=== PATIENT | male | born 1955 | race Caucasian/White ===

== ENCOUNTER 2018-02-03 09:52 | Outpatient (REF) | payer BC, SELFPAY | END 2018-02-03 10:12 | LOC: NCHCN 09:52 | PROVIDERS: PCP Family Medicine; Visit Provider Specialist/Technologist Athletic Trainer | DX: Z00.00 Encounter for general adult medical examination without abnormal findings (principal) | CPT/HCPCS: 84153 ==

== ENCOUNTER 2018-04-07 16:28 | Outpatient (REF) | payer BC, SELFPAY ==
[2018-04-07 20:32] LABS: BUN 22 mg/dL (7-18); Glucose 88 mg/dL (70-100); Sodium 141 mmol/L (136-145)
[2018-04-07 21:49] LABS: Calcium 11.9 mg/dL (8.5-10.1)
[2018-04-07 21:50] LABS: Anion Gap 12.4 mmol/L (3-11); CO2 29.6 mmol/L (21.0-32.0); CREATININE 1.54 mg/dL (0.70-1.30); Chloride 99 mmol/L (98-107); Potassium 3.1 mmol/L (3.5-5.1)
== END 2018-04-07 16:48 ==
LOC: NCHCN 16:28
PROVIDERS: PCP Family Medicine; Visit Provider Specialist/Technologist Athletic Trainer
DX: Z00.00 Encounter for general adult medical examination without abnormal findings (principal); Z13.228 Encounter for screening for other metabolic disorders
CPT/HCPCS: 80048

== ENCOUNTER 2018-04-08 08:45 | Outpatient (CLI) | payer BC, SELFPAY ==
[2018-04-08 11:00] LABS: Albumin 3.9 g/dL (3.4-5.0)
[2018-04-09 11:06] LABS: Parathyroid Hormone,Intact 7 pg/ml (19-88)
== END 2018-04-08 09:05 ==
PROVIDERS: PCP Family Medicine; Visit Provider Specialist/Technologist Athletic Trainer
DX: E83.52 Hypercalcemia (principal)
CPT/HCPCS: 36415; 82040; 83970; 84443

== ENCOUNTER 2018-04-09 00:36 | Outpatient (CLI) | payer BC, SELFPAY ==
--- NOTE | 2018-04-09 12:45 | DI.RAD_ITS ---
SYMPTOM/DIAGNOSIS: COUGH, R05 PA AND LATERAL CHEST: There are no prior comparison exams. The lungs are not well inflated. The heart size is at the upper limits of normal. There is bilateral hilar and mediastinal adenopathy. There are mildly increased interstitial markings bilaterally. No focal infiltrate or effusion is seen. The findings could represent sarcoid. Clinical correlation is recommended. IMPRESSION: Hilar and mediastinal adenopathy as well as increased interstitial markings could represent sarcoid.
== END 2018-04-09 00:56 ==
PROVIDERS: PCP Family Medicine; Visit Provider Specialist/Technologist Athletic Trainer
DX: R59.0 Localized enlarged lymph nodes (principal); R91.8 Other nonspecific abnormal finding of lung field
CPT/HCPCS: 71046

== ENCOUNTER 2018-04-15 01:17 | Outpatient (CLI) | payer BC, SELFPAY ==
[2018-04-15 14:24] LABS: Anion Gap 10.8 mmol/L (3-11); BUN 20 mg/dL (7-18); CO2 26.2 mmol/L (21.0-32.0); Calcium 10.2 mg/dL (8.5-10.1); Chloride 103 mmol/L (98-107); Estimated GFR 55.94 (mL/min/1.73m2); Glucose 98 mg/dL (70-100); Potassium 3.6 mmol/L (3.5-5.1); Sodium 140 mmol/L (136-145)
--- NOTE | 2018-04-15 15:30 | DI.CT_ITS ---
SYMPTOM/DIAGNOSIS: ABNL CXR, R91.8. [place] MEDIASTINAL ADENOPATHY. CHRONIC COUGH CHEST CT: The study was conducted according to the usual protocol with an intravenous injection of 97.1 cc of Omnipaque 350. There are some faint bilateral pulmonary interstitial densities. A region of scarring or atelectasis involving the posterior right upper lobe is identified. There is gross hilar and mediastinal adenopathy. There is no evidence of a pleural effusion. The heart is not enlarged. There is no pericardial effusion. The trachea and bronchi as visualized appear intact. There is no evidence of an aortic aneurysm in this patient. There are rather severe degenerative changes throughout the dorsal and upper lumbar spine with anterior syndesmophyte formation. The findings would be consistent with DISH. SUMMARY: Regions of apparent interstitial fibrosis, gross hilar and mediastinal adenopathy. Given the patient's clinical status and prior chest images the findings are certainly consistent with sarcoid.
[2018-04-15] MEDS: Omnipaque 350 MG/ML 100 ML BTL IJ (15:32)
== END 2018-04-15 01:37 ==
PROVIDERS: PCP Family Medicine; Visit Provider Specialist/Technologist Athletic Trainer
DX: R91.8 Other nonspecific abnormal finding of lung field (principal); R05 Cough; J84.10 Pulmonary fibrosis, unspecified; R59.0 Localized enlarged lymph nodes; E83.52 Hypercalcemia
CPT/HCPCS: 36415; 80048; 71260; J3490

== ENCOUNTER 2021-05-28 13:21 | Outpatient (REF) | payer OTHER, SELFPAY ==
--- NOTE | 2021-05-28 12:45 | SKI_PTH ---
PATIENT: Osmani Charles LOC: [facility] U#:[id number] AGE/SX: 66/M ROOM: RE05/28/[address]: David Mcdowell MD : [id number] BED: DIS: 05/28/2021 SPEC #: [id number] RECD: 05/28/21 18:05 STATUS: GUILLERMO REGabriela #: [id number] ERWIN: 05/28/21 12:[address]: David Mcdowell DEPT: Surgical Specimen RECD BY: Giuliana Kuo ENTERED: 05/28/21 18:05 SP TYPE: MACHELLE MOROCHO DR: Tin Garcia Tissues: 1 - SKIN BIOPSY(SHAVE/PUNCH) Procedures: SKIN LEVEL 4 Comments: [id number]
== END 2021-05-28 13:22 | disposition home or self-care (01) ==
LOC: LBN 13:21
PROVIDERS: PCP Family Medicine; Visit Provider Otolaryngology
DX: D23.39 Other benign neoplasm of skin of other parts of face (principal)
CPT/HCPCS: 88305

== ENCOUNTER 2021-06-07 15:46 | Outpatient (CLI) | payer OTHER, SELFPAY ==
--- NOTE | 2021-06-07 16:26 | DI.RAD_ITS ---
Exam(s) XR LUMBAR SPINE COMPLETE EXAM: XR LUMBAR SPINE COMPLETE CLINICAL HISTORY: LT LEG PAIN, M79.605. TECHNIQUE: 2D digital imaging was performed of the lumbar spine. Five images were obtained. AP, la teral, right oblique, left oblique and L5-S1 spot views were obtained. COMPARISON: No exams were available for comparison FINDINGS: BONES: No fracture or destructive lesion. There are endplate hypertrophic changes throughout the lumb ar spine. Degenerative changes of the facets are seen in the lumbar spine. DISKS: There is narrowing and a vacuum disc at L4-L5. ALIGNMENT: Lumbar spinal alignment is within normal limits. No spondylolysis or spondylolisthesis. SOFT TISSUE: Normal. IMPRESSION: Moderately severe degenerative changes throughout the lumbar spine. DATA REPOSITORY: RADIATION DOSE DELIVERED:
--- NOTE | 2021-06-07 16:26 | DI.RAD_ITS ---
Exam(s) XR HIP PELVIS ADULT BL EXAM: XR HIP PELVIS ADULT BL CLINICAL HISTORY: LT LEG PAIN, M79.605. TECHNIQUE: 2D digital imaging was performed of the pelvis and bilateral hips. Five images were obta ined. AP pelvis and lateral views of both hips were obtained. COMPARISON: No exams were available for comparison FINDINGS: BONES: No acute fracture is present. No bony destructive lesion is seen. JOINTS: No dislocation present. Marked degenerative changes of the hips bilaterally with joint space narrowing subchondral sclerosis and periarticular spurring present. Degenerative changes are also se en in the lower lumbar spine. SOFT TISSUE: Normal. IMPRESSION: Osteoarthritis of the hips bilaterally. DATA REPOSITORY: RADIATION DOSE DELIVERED:
== END 2021-06-07 16:06 ==
PROVIDERS: PCP Family Medicine; Visit Provider Family Medicine
DX: M79.605 Pain in left leg (principal); M47.816 Spondylosis without myelopathy or radiculopathy, lumbar region; M16.0 Bilateral primary osteoarthritis of hip
CPT/HCPCS: 73521; 72110

== ENCOUNTER 2021-06-13 02:48 | Outpatient (CLI) | payer OTHER, SELFPAY ==
[2021-06-13 08:26] LABS: ALT 32 U/L (16-63); AST 19 U/L (15-37); Albumin 4.1 g/dL (3.4-5.0); Alkaline Phosphatase 148 U/L (46-116); Anion Gap 10.3 mmol/L (3-11); BUN 18 mg/dL (7-18); Bilirubin, Total 0.8 mg/dL (0.2-1.0); CO2 28.7 mmol/L (21.0-32.0); CREATININE 1.2 mg/dL (0.70-1.30); Calcium 9.5 mg/dL (8.5-10.1); Calculated LDL 151 mg/dL (<100); Chloride 105 mmol/L (98-107); Cholesterol 215 mg/dL (<200); Glucose 100 mg/dL (74-106); HDL Cholesterol 45 mg/dL (40-60); Potassium 3.7 mmol/L (3.5-5.1); Sodium 144 mmol/L (136-145); Total Protein 7.4 g/dL (6.4-8.2); Triglyceride 99 mg/dL (<150)
[2021-06-13 20:56] LABS: PSA, Screening 0.5 ng/mL (0.0-4.5)
== END 2021-06-13 02:49 | disposition home or self-care (01) ==
LOC: LBO 02:48
PROVIDERS: PCP Family Medicine; Visit Provider Family Medicine
DX: Z12.5 Encounter for screening for malignant neoplasm of prostate (principal); Z13.220 Encounter for screening for lipoid disorders; Z13.228 Encounter for screening for other metabolic disorders
CPT/HCPCS: 36415; 80053; 80061; 84153

== ENCOUNTER → 2021-09-12 03:04 | Outpatient (CLI) | payer OTHER, SELFPAY ==
--- NOTE | 2021-09-12 13:30 | DI.RAD_ITS ---
Exam(s) RF JOINT INJECTION FLUORO GUID EXAM: RF JOINT INJECTION FLUORO GUID CLINICAL HISTORY: L HIP INJ UNDER FLUORO, LT HIP PAIN,M25.552 TECHNIQUE: 2D and realtime digital imaging was performed. CONTRAST MATERIAL: Water soluble contrast was administered. COMPARISON: No exams were available for comparison FINDINGS: Fluoroscopy was provided for Dr. Mcginnis during the performance of a left hip injection. Please re mireille to the procedure report for complete details. RADIATION DOSE DELIVERED: dolly Cruz=0.85 mGy
--- NOTE | 2021-09-12 13:38 | DI.RAD_ITS ---
Exam(s) RF JOINT INJECTION FLUORO GUID EXAM: RF JOINT INJECTION FLUORO GUID CLINICAL HISTORY: R HIP INJ UNDER FLUORO,RT HIP PAIN, M25.551 TECHNIQUE: 2D and realtime digital imaging was performed. CONTRAST MATERIAL: Water soluble contrast was administered. COMPARISON: No exams were available for comparison FINDINGS: Fluoroscopy was provided for Dr. Mcginnis during the performance of a right hip injection. Please r efer to the procedure report for complete details. RADIATION DOSE DELIVERED: dolly Cruz=0.06 mGy
[2021-09-12] MEDS: Omnipaque 300 MG/ML 10 ML BTL IJ ×2 (14:05→15:15)
[2021-09-12] MEDS: methylPREDNISolone ACETATE 80 MG/ML VIAL IM ×2 (14:37→15:15)
--- NOTE | 2021-09-12 19:58 | W.PROCNOTE ---
Date of service: 09/12/21 Time of Service: 14:40 Procedure Note Date of procedure: 09/12/21 Procedure: Bilateral Hip Injection with Fluoroscopic Guidance Surgeon/Proceduralist/Physician: Kofi Mcginnis Procedure Diagnosis: Bilateral Hip Osteoarthritis Procedure Indications: Osmani has had persistent pain of the BILATERAL hip and groin. Noninvasive measures have been tried. To serve as both diagnostic and therapeutic, an injection under fluoroscopy was recommended. I had discussed the risks of the procedure and the patient elected to proceed. Procedure Description: Osmani was greeted in the flouroscopy room. The consent was reviewed with the patient and signed. The patient was then placed in the supine position on the fluoroscopy table. The RIGHT hip was then prepped with Chloraprep. The anterolateral injection starting point was identiifed by bony landmarks and fluoroscopy. The skin and soft tissue in the tract of the injection was anesthetized with 1% Lidocaine. A spinal needle was then inserted deep into the hip joint at the level of the lateral femoral neck under fluoroscopic guidance. A small amount of Omnipaque solution was injected to confirm intraarticular placement. Once confirmed, the hip was injected with 5cc of 0.5% Bupivicaine and 80mg of Depo-Medrol. A bandaid was placed on the injection site. The LEFT hip was then prepped with Chloraprep. The anterolateral injection starting point was identiifed by bony landmarks and fluoroscopy. The skin and soft tissue in the tract of the injection was anesthetized with 1% Lidocaine. A spinal needle was then inserted deep into the hip joint at the level of the lateral femoral neck under fluoroscopic guidance. A small amount of Omnipaque solution was injected to confirm intraarticular placement. Once confirmed, the hip was injected with 5cc of 0.5% Bupivicaine and 80mg of Depo-Medrol. A bandaid was placed on the injection site. The patient tolerated the procedure well.
== END ==
PROVIDERS: PCP Family Medicine; Visit Provider Student in an Organized Health Care Education/Training Program
DX: M25.551 Pain in right hip (principal); M25.552 Pain in left hip
CPT/HCPCS: 20610; 77002; J1040

== ENCOUNTER 2021-11-11 13:44 | Outpatient (CLI) | payer OTHER, SELFPAY ==
--- NOTE | 2021-11-11 08:30 | DI.RAD_ITS ---
Exam(s) XR PELVIS AP EXAM: XR PELVIS AP CLINICAL HISTORY: ALEISHA planning TECHNIQUE: 2D digital imaging was performed. AP supine view with template ball COMPARISON: CR XR HIP PELVIS ADULT BL from 06/07/2021 FINDINGS: Severe bilateral hip joint space narrowing. Periarticular spurring, sclerosis and subchondral cyst f ormation bilaterally. IMPRESSION: Severe degenerative changes of both hips.
== END 2021-11-11 13:45 | disposition home or self-care (01) ==
LOC: DIORS 13:44
PROVIDERS: PCP Family Medicine; Visit Provider Physician Assistant
DX: M16.0 Bilateral primary osteoarthritis of hip
CPT/HCPCS: 72170

== ENCOUNTER 2022-03-13 12:10 | Outpatient (CLI) | payer OTHER, SELFPAY ==
[2022-03-13 11:14] LABS: HCT 43.5 % (40.0-50.0); HGB 14.4 g/dL (13.5-17.5); MCH 29.9 pg (27.0-33.0); MCHC 33.1 % (32.0-36.0); MCV 90 fL (80-95); MPV 11.4 fL (8.0-11.0); Platelet Count 197 10^3/uL (130-400); RBC 4.82 10^6/uL (4.36-5.78); RDW 13.2 % (11.8-14.1); RDW-SD 43.7 fL; WBC 5.86 10^3/uL (4.4-10.8)
[2022-03-13 11:53] LABS: Anion Gap 9.2 mmol/L (3-11); BUN 24 mg/dL (7-18); CO2 28.8 mmol/L (21.0-32.0); CREATININE 1.2 mg/dL (0.70-1.30); Calcium 9.7 mg/dL (8.5-10.1); Chloride 104 mmol/L (98-107); Glucose 105 mg/dL (74-106); Sodium 142 mmol/L (136-145)
== END 2022-03-13 12:11 | disposition home or self-care (01) ==
LOC: LBO 12:11
PROVIDERS: PCP Family Medicine; Visit Provider Student in an Organized Health Care Education/Training Program
DX: M16.11 Unilateral primary osteoarthritis, right hip (principal); M16.12 Unilateral primary osteoarthritis, left hip; Z01.818 Encounter for other preprocedural examination
CPT/HCPCS: 36415; 80048; 85027; 86850; 86900; 86901

== ENCOUNTER 2022-03-18 05:52 | Day surgery (SDC) | payer OTHER, SELFPAY ==
[2022-03-18] VITALS (16 sets, daily range): BP systolic 87–130; BP diastolic 50–87; PULSE 37–53; RESP 10–18; TEMP 36–36.5; O2SAT 94–99; BMI 35.4
[2022-03-18] MEDS: Acetaminophen 500 MG TAB 1000 MG PO ×2 (06:33→16:23)
[2022-03-18] MEDS: Celecoxib 200 MG CAP 400 MG PO (06:33)
[2022-03-18] MEDS: Lactated Ringers 1,000 ML 80 ML IV (06:40)
--- NOTE | 2022-03-18 07:00 | W.ANESPRE ---
General Info Date of Service Date Performed: 03/18/22 Height: 5 ft 6 in Weight: 99.7 kg Body Mass Index (BMI): 35.4 Surgical Procedure: Operation Date: 03/18/22 08:00 Proposed Procedure Side Surgeon p Hip Total Hip Anterior Bilateral ACTIS Bilateral Kofi Mcginnis MD Meds Allergies and Home Medications Allergies Allergy/AdvReac Type Severity Reaction Status Date / Time lactose AdvReac Stomach Verified 03/18/22 06:11 Upset Home Medication Medication Instructions Recorded amlodipine 10 mg tablet 10 mg PO DAILY 05/24/21 garlic 1,000 mg capsule 4,000 mg PO DAILY 05/24/21 ibuprofen 200 mg capsule 600 mg PO Q6H PRN 05/24/21 metoprolol tartrate 50 mg tablet 50 mg PO BID 05/24/21 sildenafil 100 mg tablet (Viagra) 100 mg PO DAILY PRN 05/24/21 multivitamin 1 tab PO DAILY 05/28/21 Current Visit Medications: Current Medications Generic Name Dose Route Start Last Admin Trade Name Robertq PRN Reason Stop Dose Admin Acetaminophen 1,000 mg 03/18/22 06:00 03/18/22 06:33 Acetaminophen 500 Mg Tab PO 03/18/22 16:00 1,000 mg PREOP ELIEZER Administration Celecoxib 400 mg 03/18/22 06:00 03/18/22 06:33 Celecoxib 200 Mg Cap PO 03/18/22 16:00 400 mg PREOP ELIEZER Administration Tranexamic Acid 1,000 mg/ 60 mls @ 360 mls/hr 03/18/22 06:00 Sodium Chloride IV 03/18/22 16:00 PREOP ELIEZER Tranexamic Acid 1,000 mg/ 60 mls @ 360 mls/hr 03/18/22 06:00 Sodium Chloride IV 03/18/22 16:00 DIRECTED ELIEZER Ringer's Solution 1,000 mls @ 80 mls/hr 03/18/22 06:00 IV 04/16/22 23:59 INFUSION ELIEZER Cefazolin Sodium/Dextrose 2 gm in 50 mls @ 100 mls/hr 03/18/22 06:00 Ancef Duplex IVPB 03/18/22 16:00 PREOP ELIEZER IV Miscellaneous Supplies 1 each 03/18/22 06:00 Iv Access IV 04/16/22 23:59 DIRECTED ELIEZER Sodium Chloride 0 ml 03/18/22 06:00 Normal Saline Flush 10 Ml Syr IV 04/16/22 23:59 PRN PRN Sodium Chloride 0 ml 03/18/22 06:00 Normal Saline 10 Ml Vial IJ 04/16/22 23:59 DIRECTED PRN Sterile Water 0 ml 03/18/22 06:00 Water,Injection,Sterile 10 Ml Vial IJ 04/16/22 23:59 DIRECTED PRN PFSH Active Problems Active Problems: Problem Status Onset Code Asymmetrical sensorineural hearing loss H90.5 Exostosis of both external ear canals H61.813 Impacted cerumen, left ear H61.22 External nasal lesion L98.9 Primary localized osteoarthritis of right hip M16.11 Primary osteoarthritis of left hip M16.12 Lumbar spondylosis M47.816 Degenerative disc disease, lumbar M51.36 Medical History Medical History Anxiety Basal cell carcinoma (BCC) Bradycardia Carpal tunnel syndrome Erectile dysfunction Gout Hyperlipidemia Hypertension Lumbar disc disease Obstructive sleep apnea Right retinal detachment Sarcoidosis of lung Tubular adenoma Ulnar neuropathy Surgical History Surgical History (Updated 03/18/22 @ 06:12 by Kelley Simmons) History of back surgery History of mandibular surgery 2010 Hx of colonoscopy Hx of detached retina repair 11/2020 Hx of discectomy 07/2002 Hx of vasectomy Tobacco Smoking/Tobacco Use Status: Never Alcohol Alcohol Intake: current Alcohol intake frequency: a few times a week Alcohol type: beer and wine Substance Use Substance use: Never Substance use type: does not use Details: alcohol: t-1, one beer Vital Signs and Lab Results Vital Signs Most Recent Vital Signs in EMR: Most Recent Vital Signs Temp Pulse Resp BP Pulse Ox 36.5 C 53 L 18 130/82 98 03/18/22 06:20 03/18/22 06:20 03/18/22 06:20 03/18/22 06:20 03/18/22 06:20 Lab Results Blood Type / Crossmatch: Patient ABO/Rh B Positive 03/13/22 Antibody Screen NEGATIVE 03/13/22 Complete Blood Count: White Blood Count 5.86 10^3/uL (4.4-10.8) 03/13/22 11:01 Red Blood Count 4.82 10^6/uL (4.36-5.78) 03/13/22 11:01 Hemoglobin 14.4 g/dL (13.5-17.5) 03/13/22 11:01 Hematocrit 43.5 % (40.0-50.0) 03/13/22 11:01 Platelet Count 197 10^3/uL (130-400) 03/13/22 11:01 Complete Metabolic Panel: Sodium 142 mmol/L (136-145) 03/13/22 11:01 Potassium 4.0 mmol/L (3.5-5.1) 03/13/22 11:01 Chloride 104 mmol/L (98-107) 03/13/22 11:01 Carbon Dioxide 28.8 mmol/L (21.0-32.0) 03/13/22 11:01 BUN 24 mg/dL (7-18) H 03/13/22 11:01 Creatinine 1.2 mg/dL (0.70-1.30) 03/13/22 11:01 Est GFR (CKD-EPI 2020) 66.70 (mL/min/1.73m2) 03/13/22 11:01 Calcium 9.7 mg/dL (8.5-10.1) 03/13/22 11:01 Glucose 105 mg/dL (74-106) 03/13/22 11:01 Liver Function Panel: No Data to Display Coagulation Panel: No Data to Display Cardiac Panel: No Data to Display Arterial Blood Gas: No Data to Display Venous Blood Gas: No Data to Display Pancreas Panel: No Data to Display Thyroid Panel: No Data to Display Infectious Disease: No Data to Display Blood Cultures: No Data to Display Toxicology Panel: No Data to Display Anesthesia Assessment and Plan Anesthesia History Personal History: No History of Anesthesia Complications Family History: No Family History of Anesthesia Complications Exercise Tolerance Exercise Tolerance: Metabolic Equivalents>4 Pertinent Negatives Pertinent Negatives: No Symptoms of GERD, No Major Cardiovascular Symptoms or Complaints, No Major Pulmonary Symptoms or Complaints (Sarcoidosis resolved, SHAWN resolved with surgery ) and No History of CVA/TIA Cardiac & Pulmonary Exam Cardiac Exam: Normal S1/S2 Heart Sounds Pulmonary Exam: Clear Bilateral Breath Sounds Implantable Cardiac Device Does patient have a Pacemaker or an ICD?: No Airway Exam Known Difficult Airway: No Mallampati Class: 1 Mouth Opening: Normal (> 3cm) Thyromental Distance: Greater than 3 cm Neck Range of Motion: Full ROM Neck Circumference: Thick Teeth Condition: Normal Dentition ASA Classification ASA Score: ASA 2 Emergency Case?: No NPO Status NPO Status: NPO Clears >2 hours, Solids >8 hours Anesthesia Plan Resuscitation Status: Full Code Anesthesia Technique: Spinal Anesthesia Airway Planned: Natural Airway Monitors Used: Standard Monitors
--- NOTE | 2022-03-18 07:21 | DSE_ITS ---
Date of service: 03/18/22 Time of Service: 13:56 DS: Diagnosis Discharge Diagnosis (1) Primary localized osteoarthritis of right hip: Status: Acute (2) Primary osteoarthritis of left hip: Status: Acute Discharge Plan Disposition Patient Disposition: HOME Condition: Good Condition: Good Discharge Details Reason For Visit: Bilateral Hip DJD Attending Provider: Kofi Mcginnis Primary Care Provider: Tin Garcia Home Meds and New Rx's Prescriptions: New celecoxib 200 mg capsule 200 mg PO BID PRN (Reason: pain) Qty: 60 1RF aspirin 81 mg tablet,delayed release (DR/EC) 81 mg PO BID Qty: 60 0RF acetaminophen 500 mg tablet 1,000 mg PO Q8H PRN (Reason: pain) Qty: 90 3RF pantoprazole 40 mg tablet,delayed release (DR/EC) 40 mg PO DAILY Qty: 30 0RF dexamethasone 4 mg tablet 4 mg PO DAILY Qty: 2 0RF Rx Instructions: Starting Post-Operative Day #1 (Day after surgery) oxycodone 5 mg tablet 5 mg PO Q4H Qty: 18 0RF Continued garlic 1,000 mg capsule 4,000 mg PO DAILY sildenafil [Viagra] 100 mg tablet 100 mg PO DAILY PRN Rx Instructions: administer 30 minutes to 4 hours before activity amlodipine 10 mg tablet 10 mg PO DAILY metoprolol tartrate 50 mg tablet 50 mg PO BID multivitamin Tablet 1 tab PO DAILY Discontinued ibuprofen 200 mg capsule 600 mg PO Q6H PRN Discharge Instructions Additional Instructions: Total Hip Discharge Instructions Activity: The most important activity is to walk. You should try to take short walks a few times a day. You have no restrictions on movement or positioning, but do not try to force what you do. You will find some stiffness and weakness with hip flexion (lifting your knee). Do not try to strengthen this too early, continue to practice walking and stairs and this will come. - Outpatient physical therapy can be helpful to help return you to a normal gait and improve your flexibility and strength. This can start around 2 weeks. For some patients, it?s not necessary. Usually this is determined at the time of discharge or at the first post-operative visit. - You should wear the CATRINA hose on both legs for 2 weeks. Dressing: Keep the surgical dressing in place for at least one week. After the first week it may be removed and replace with light gauze and tape or nothing. It may get wet after 3 days but avoid soaking the dressing. If it gets wet, just lightly pat dry. It is important to always keep some gauze between skin folds, especially when you are sitting. Spend some time with the wound exposed when you are lying flat as the incision does wrinkle onto itself. Medications: - You should take Tylenol and an anti-inflammatory Celebrex as your primary pain control medications. If the Celebrex is too expensive or not covered, please call the office for another alternative (Advil/Ibuprofen or Naproxen/Aleve). - You have been prescribed a stronger pain medication Oxycodone for breakthrough pain, take as needed as prescribed. - You have also been prescribed a stomach acid reduction agent Pantoprozole to help reduce stomach acid and reflux. - You have also been prescribed Decadron to help with post-operative nausea and pain. You will take this for two days starting tomorrow. - You will be taking Aspirin 81mg twice a day for DVT prevention unless instructed otherwise. - If you have constipation you should take Colace or Miralax (both [id number]). It takes most people 3-4 days to have a bowel movement. Follow-up: 2 weeks If you have any acute concerns or questions, please do not hesitate to contact the office at [phone]. You may contact Dr. Mcginnis with any questions after hours through the hospital at [phone] or on his cell phone at [phone]. Stand Alone Forms: Anesthesia Discharge InstMona, Derrek Yost (U) Referrals: Kofi Mcginnis MD [ [facility] STAFF PHYSICIAN] - Equipment/Supplies: Walker Activity:: Activity as Tolerated Remove Dressings/Wound Care:: Do Not Remove Shower/Bathe:: 72 hours Activity:: Activity as Tolerated Equipment/Supplies:: Walker Diet:: As Tolerated DS: Summary Time Spent with Patient providing and/or coordinating discharge services: Less than 30 minutes Status at Discharge Functional status at discharge: uses cane/walker Overall status at discharge: patient is progressing back to baseline Mental Status: mental status grossly normal Speech and Movement: speech and movement normal Mood: congruent mood Affect: normal affect Exam Psych Mental Status: mental status grossly normal Speech and Movement: speech and movement normal Mood: congruent mood Affect: normal affect DS: Data Vitals/I&O Vitals and I&O: Vital Signs Temperature 36.5 C 03/18/22 06:20 Pulse 53 L 03/18/22 06:20 Pulse Rhythm Regular 03/18/22 06:20 Respiratory Rate 18 03/18/22 06:20 Respiratory Depth Normal 03/18/22 06:20 Blood Pressure 130/82 03/18/22 06:20 Pulse Oximetry 98 03/18/22 06:20 Oxygen Delivery Method Room Air 03/18/22 06:20 Oxygen Flow Rate 0 03/18/22 06:20 Pain Level 0 03/18/22 06:20 Intake & Output 03/17/22 03/17/22 03/18/22 11:59 23:59 11:59 Weight 99.7 kg PFSH All Active Problems Asymmetrical sensorineural hearing loss (Acute) Exostosis of both external ear canals (Acute) Impacted cerumen, left ear (Acute) External nasal lesion (Acute) Primary localized osteoarthritis of right hip (Acute) Primary osteoarthritis of left hip (Acute) Lumbar spondylosis (Acute) Degenerative disc disease, lumbar (Acute) Medical History Anxiety Basal cell carcinoma (BCC) Bradycardia Carpal tunnel syndrome Erectile dysfunction Gout Hyperlipidemia Hypertension Lumbar disc disease Obstructive sleep apnea Right retinal detachment Sarcoidosis of lung Tubular adenoma Ulnar neuropathy Surgical History History of back surgery History of mandibular surgery 2010 Hx of colonoscopy Hx of detached retina repair 11/2020 Hx of discectomy 07/2002 Hx of vasectomy Family History Mother Cancer Social History Smoking/Tobacco Use Status: Never Smoking risk assessment performed?: Yes Alcohol Intake: current Alcohol Intake frequency: a few times a week Alcohol type: beer and wine Drug use: Never Substance use type: does not use Details: alcohol: t-1, one beer Pets and animals: Yes Pets and animals: dog(s) Do you feel safe at home: Yes Do you feel safe in your relationship?: Yes Additional Social history: unable to assess privately
[2022-03-18] MEDS: ceFAZolin 2 GM/50 ML BAG IVPB (07:42)
--- NOTE | 2022-03-18 08:38 | DI.RAD_ITS ---
Exam(s) XR HIP RT IN OR EXAM: XR HIP RT IN OR CLINICAL HISTORY: right total hip TECHNIQUE: 2D and realtime digital imaging was performed. CONTRAST MATERIAL: Refer to procedure report. COMPARISON: CR XR PELVIS AP from 11/11/2021 FINDINGS: Fluoroscopy was provided for Dr. Mcginnis during the performance of a right total hip arthroplasty. Please refer to the procedure report for complete details. Ka,r=7.9 mGy IMPRESSION: RADIATION DOSE DELIVERED:
--- NOTE | 2022-03-18 09:55 | DI.RAD_ITS ---
Exam(s) XR HIP LT IN OR EXAM: XR HIP LT IN OR CLINICAL HISTORY: left total hip TECHNIQUE: 2D and realtime digital imaging was performed. CONTRAST MATERIAL: Refer to procedure report. COMPARISON: CR XR PELVIS AP from 11/11/2021 FINDINGS: Fluoroscopy was provided for Dr. Mcginnis during the performance of a left total hip arthroplasty. Please refer to the procedure report for complete details. Ka,r=5.43 mGy IMPRESSION: RADIATION DOSE DELIVERED:
--- NOTE | 2022-03-18 11:44 | ROE_ITS ---
Date of service: 03/18/22 Time of Service: 10:05 Operative Note Operative Note DATE OF PROCEDURE: 03/18/22 PRE-OP DIAGNOSIS: Bilateral Hip Osteoarthritis POST-OP DIAGNOSIS: same PROCEDURE: Bilateral Anterior Total Hip Arthroplasty with Intraoperative Navigation SURGEON: Kofi Mcginnis BELT MAKER: Michelle Wilburn ANESTHESIA TYPE: Spinal Refer to Anesthesia Record ESTIMATED BLOOD LOSS: 400 PATHOLOGY: none sent COMPLICATIONS: None Patient was transported to: PACU Patient's condition: stable Implants: RIGHT: 1. Depuy Inchelium Acetabular Component, 54mm 2. Depuy Acetabular Liner, [id number] 3. Depuy Actis Standard Femoral Stem, Size 7 4. Depuy Altrx Ceramic Femoral Head, Size 36+5mm LEFT: 1. Depuy Inchelium Acetabular Component, 54mm 2. Depuy Acetabular Liner, [id number] 3. Depuy Actis Standard Femoral Stem, Size 6 4. Depuy Altrx Ceramic Femoral Head, Size 36+5mm Indications: I have seen Kobe in clinic for symptoms of hip arthritis, confirmed with radiographic findings. He has exhausted nonoperative methods and was having significant limitations in daily function and desired better function and less pain. I discussed the technical details of a hip replacement. I explained the risks of the procedure to include, but not limited to, bleeding, infection, pain, stiffness, fracture, damage to nerves and vessels, damage to muscles and tendons, loosening, instability, leg length inequality, need for repeat procedure, blood clot and cardiopulmonary demise. Despite these risks, Kobe elected to proceed. Findings: There was significant signs of arthritis throughout both hips. Osteophytes were present around the femoral neck with a large floor osteophyte. Procedure Description: Kobe was greeted in the preoperative holding area where the correct side was identified and marked. The consent was reviewed with the patient and signed. The history and physical was updated. All questions were answered. He was taken back to the operating room. A spinal anesthestic was then administered. The patient was placed into the supine position on the HANA table. Both feet were wrapped with [employer]brill cotton wrap along with Coban. RIGHT Side The feet were placed in specialized boots for the HANA table, well seated within the boot and secured. SCDs were applied. The patient was then slid down onto a peroneal post. A preoperative AP hip was obtained to serve as a reference for determining leg lengths. Prophylactic antibiotics in the form of Cefazolin were administered. 1g of Tranxemic Acid was given intravenously within 30 minutes of incision. The right leg was then prepped with Chloraprep and draped in a standard fashion. A second prep with Chloraprep was performed prior to placement of a shower-curtain type drape with Iodine impregnated skin protection. A timeout to confirm correct identity, side and site, procedure, allergies, anesthesia, and medical concerns was performed. An obliquely oriented incision was made starting lateral to the ASIS and running distal over the Tensor Fascia Nevaeh (TFL) muscle belly toward the fibular head, approximately 10cm. The skin and soft tissue was dissected sharply, through Delano?s fascia, and to the fascia of the TFL. With the fascia and superior border of the IT band identified, the fascia was incised with a new knife just above any perforators from the IT band. The TFL muscle belly was bluntly dissected away from the fascia and moved laterally. The fat between TFL and rectus was identified to ensure the dissection was not within the TFL. Blunt dissection created space between abductors and the capsule and retractor was placed over the lateral femoral neck. The fibers of the rectus femoris tendon were identified and these were freed from the anterior capsule. A second cobra retractor was placed around the medial femoral neck. The TFL was further retracted laterally to show the deep fascia. Careful dissection through this layer identified three main crossing vessels of the lateral femoral circumflex. These were cauterized in multiple locations and then cut without any noticeable bleeding. The TFL was further released bluntly from the deep fascia to expose anterior hip capsule and fat The Doug orthopaedic retractor was then placed beneath the TFL and against sartorius and medial soft tissues to protect and retract the soft tissues. A T-capsulotomy was then performed starting at the superior lateral acetabulum and moving distally to the intertrochanteric ridge. These capsular flaps were tagged with a No. 1 Ethibond and elevated from within. The capsular flaps were released to the shoulder of the lateral neck and to the lesser trochanter to give excellent visualization of the proximal femur. A neck osteotomy was performed using an oscillating saw based on preoperative templates. This cut started in the shoulder and of the lateral neck and exited medially. The saw was at all times directed medially to avoid injury to the greater trochanter. Gentle traction was applied to the leg and the osteotomy opened. The femoral head was removed with a corkscrew, making sure to protect the TFL on its exit. This was measured on the back table to determing the starting reamer size. Portions of the rectus obscuring visualization were minimally elevated off the superior acetabulum. An anterior retractor was placed over the anterior wall between capsule and labrum and attached to the Gripper retraction system. A posterior retractor was placed similarly. This provided excellent visualization. The contents of the cotyloid fossa were removed with electrocautery and the labrum was removed with a knife. There was a notable floor osteophyte. There was significant chondromalacia of the s uperior acetabulum. Acetabular reaming began with a 50mm reamer. This first reaming was directed anterior to posterior and medial to get down to the true floor. This was inspected and reamed until the true floor was reached. The anterior retractor was then released and entry and exit was provided by traction on the capsular flaps. I then reamed sequentially up to a 54mm reamer where good fit was obtained. The larger reamers were oriented based on anatomical reference of the anterior and lateral sims to ensure proper abduction and anteversion. Positioning and size was confirmed with the fluoroscopy. A 54mm Depuy Inchelium acetabular component was selected. The acetabulum was reamed around the periphery with the selected acetabular size to prevent a rim fit. The deep tissues were irrigated. The acetabular component was then impacted in a position of about 40-45 degrees of abduction and 15-20 degrees of anteversion, using the patient?s anatomy as the ultimate landmark. Fluoroscopy was used to confirm this. There was excellent developer architect of the acetabular component and the inserting handle was removed. The acetabular liner, Depuy [id number] polyethylene liner, was inserted and lined up with the tines of the acetabular component. There was no soft tissue interposition. The liner was then impacted into position and confirmed to be well-seated. A portion of the matt-articular cocktail was then injected around the acetabulum into the capsule and periosteum. This cocktail consisted of 123mg of Ropivacaine, 0.25mg of Epinephrine, 0.04mg of Clonidine, and 15mg of Ketorolac, diluted to 50cc. Traction was released from the femur. The leg was rotated to 120 degrees. Any remaining medial capsule was released until the lesser trochanter was easily palpable. A Guthrie retractor was placed medially. The lateral capsule was further released into the shoulder to allow access to the greater trochanter. A Guthrie retractor was placed over the greater trochanter which allowed the trochanter to flip in front of the capsule for excellent exposure. The leg was brought down into maximal extension and 20 degrees of adduction while ensuring there was no impingement on the acetabulum. Any remnant capsule within the trochanter was released. Piriformis and obturator externis were identified and protected. There was excellent access to the proximal femur. The lateral neck remnant was removed with a rongeur. A blunt canal probe was used to identify the canal and trajectory for later broaching. A box osteotome initiated the broach course. A small curved rasp an d a curved curette were used to work laterally. Broaching then began with a size 0 Actis broach. This was inserted manually around the trochanter and into the canal before mallet blows. The broach was seated to a few millimeters below the cut level based on the neck cut and the preoperative template. Sequential broaching was continued with the [employer] pneumatic broaching device until a tight fit was obtained with good rotational control of the femur. A trial standard neck was inserted along with a +5 trial head. The leg was brought out of extension and adduction and then reduced with t raction and internal rotation. The leg was stable anteriorly in a position of 30 degrees of extension and 90 degrees of external rotation. Fluoroscopy was used to ensure there was no fracture and the stem was seated well. Leg lengths were checked with an AP pelvis and pelvic reference points. [employer] navigation system was used to confirm appropriate positioning and leg length and offset. Once content with the desired offset and leg lengths, the leg was brought back into extension, external rotation and adduction. The periosteum and surrounding tissue was injected with remaining portion of the matt-articular cocktail. The proximal femur was irrigated as well as the deep tissues. The Depuy Actis standard stem, size 7, was then manually inserted into the proximal femur making sure to control rotation. It was then malleted into position with light blows, giving breaks to allow bone expansion and decrease risk of fracture. The selected Depuy Altrx Ceramic Head, size 36+5mm, was then placed onto the clean and dry trunnion and secured with impaction onto the tapered fit. The leg was brought back out of extension and adduction and reduced with traction and internal rotation. Stability was confirmed with no shuck at 90 degrees of external rotation and 30 degrees of extension. No impingement through range of motion arc. Final x-ray images were obtained with fluoroscopy to confirm adequate positioning and no intraoperative fracture. The deep tissues were thoroughly irrigated with Irrisept chlorhexadine solution. The second dose of TXA 1g was administered intravenously.The capsule was then reapproximated with the previously placed Ethibond sutures. The TFL fascia was finally closed with a No. 2 Stratafix, barbed suture. Deep tissues were then reapproximated with 0 Vicryl and a running 2-0 Vicryl. The skin was closed with a running 4-0 Monocryl in a subcuticular fashion. This was reinforced with skin glue. A Mepilex silver dressing was applied. LEFT Side Keeping the back table sterile, the drapes were removed, light handles changed, and fluoroscopy switched rooms sides. Once again, a AP hip was obtained to serve as a reference for determining leg lengths. The left leg was then prepped with Chloraprep and draped in a standard fashion. A second prep with Chloraprep was performed prior to placement of a shower-curtain type drape with Iodine impregnated skin protection. A timeout was once again performed to ensure that there were no issues to proceed. An obliquely oriented incision was made starting lateral to the ASIS and running distal over the Tensor Fascia Nevaeh (TFL) muscle belly toward the fibular head, approximately 10cm. The skin and soft tissue was dissected sharply, through Delano?s fascia, and to the fascia of the TFL. With the fascia and superior border of the IT band identified, the fascia was incised with a new knife just above any perforators from the IT band. The TFL muscle belly was bluntly dissected away from the fascia and moved laterally. The fat between TFL and rectus was identified to ensure the dissection was not within the TFL. Blunt dissection created space between abductors and the capsule and retractor was placed over the lateral femoral neck. The fibers of the rectus femoris tendon were identified and these were freed from the anterior capsule. A second cobra retractor was placed around the medial femoral neck. The TFL was further retracted laterally to show the deep fascia. Careful dissection through this layer identified three main crossing vessels of the lateral femoral circumflex. These were cauterized in multiple locations and then cut without any noticeable bleeding. The TFL was further released bluntly from the deep fascia to expose anterior hip capsule and fat The Doug orthopaedic retractor was then placed beneath the TFL and against sartorius and medial soft tissues to protect and retract the soft tissues. A T-capsulotomy was then performed starting at the superior lateral acetabulum and moving distally to the intertrochanteric ridge. These capsular flaps were tagged with a No. 1 Ethibond and elevated from within. The capsular flaps were released to the shoulder of the lateral neck and to the lesser trochanter to give excellent visualization of the proximal femur. A neck osteotomy was performed using an oscillating saw based on preoperative templates. This cut started in the shoulder and of the lateral neck and exited medially. The saw was at all times directed medially to avoid injury to the greater trochanter. Gentle traction was applied to the leg and the osteotomy opened. The femoral head was removed with a corkscrew, making sure to protect the TFL on its exit. This was measured on the back table to determing the starting reamer size. Portions of the rectus obscuring visualization were minimally elevated off the superior acetabulum. An anterior retractor was placed over the anterior wall between capsule and labrum and attached to the Gripper retraction system. A posterior retractor was placed similarly. This provided excellent visualization. The contents of the cotyloid fossa were remov ed with electrocautery and the labrum was removed with a knife. There was a notable floor osteophyte. There was significant chondromalacia of the superior acetabulum. Acetabular reaming began with a 50mm reamer. This first reaming was directed anterior to posterior and medial to get down to the true floor. This was inspected and reamed until the true floor was reached. The anterior retractor was then released and entry and exit was provided by traction on the capsular flaps. I then reamed sequentially up to a 54mm reamer where good fit was obtained. The larger reamers were oriented based on anatomical reference of the anterior and lateral sims to ensure proper abduction and anteversion. Positioning and size was confirmed with the fluoroscopy. A 54mm Depuy Inchelium acetabular component was selected. The acetabulum was reamed around the periphery with the selected acetabular size to prevent a rim fit. The deep tissues were irrigated. The acetabular component was then impacted in a position of about 40-45 degrees of abduction and 15-20 degrees of anteversion, using the patient?s anatomy as the ultimate landmark. Fluoroscopy was used to confirm this. There was excelle nt developer architect of the acetabular component and the inserting handle was removed. The acetabular liner, Depuy [id number] polyethylene liner, was inserted and lined up with the tines of the acetabular component. There was no soft tissue interposition. The liner was then impacted into position and confirmed to be well-seated. A portion of the amtt-articular cocktail was then injected around the acetabulum into the capsule and periosteum. This cocktail consisted of 123mg of Ropivacaine, 0.25mg of Epinephrine, 0.04mg of Clonidine, and 15mg of Ketorolac, diluted to 50cc. Traction was released from the femur. The leg was rotated to 120 degrees. Any remaining medial capsule was released until the lesser trochanter was easily palpable. A Guthrie retractor was placed medially. The lateral capsule was further released into the shoulder to allow access to the greater trochanter. A Guthrie retractor was placed over the greater trochanter which allowed the trochanter to flip in front of the capsule for excellent exposure. The leg was brought down into maximal extension and 20 degrees of adduction while ensuring there was no impingement on the acetabulum. Any remnant capsule within the troc hanter was released. Piriformis and obturator externis were identified and protected. There was excellent access to the proximal femur. The lateral neck remnant was removed with a rongeur. A blunt canal probe was used to identify the canal and trajectory for later broaching. A box osteotome initiated the broach course. A small curved rasp and a curved curette were used to work laterally. Broaching then began with a size 0 Actis broach. This was inserted manually around the trochanter and into the canal before mallet blows. The broach was seated to a few millimeters below the cut level based on the neck cut and the preoperative template. Sequential broaching was continued with the [employer] pneumatic broaching device until a tight fit was obtained with good rotational control of the femur. A trial standard neck was inserted along with a +5 trial head. The leg was brought out of extension and adduction and then reduced with traction and internal rotation. The leg was stable anteriorly in a position of 30 degrees of extension and 90 degrees of external rotation. Fluoroscopy was used to ensure there was no fracture and the stem was seated well. Leg lengths were checked with an AP pelvis and pelvic reference points. [employer] navigation system was used to confirm appropriate positioning and leg length and offset. There was correct denominational of the offset but over lengthening of the leg, so the broach was advanced 5mm. Once content with the desired offset and leg lengths, the leg was brought back into extension, external rotation and adduction. The periosteum and surrounding tissue was injected with remaining portion of the matt-articular cocktail. The proximal femur was irrigated as well as the deep tissues. The Depuy Actis standard stem, size 6, was then manually inserted into the proximal femur making sure to control rotation. It was then malleted into position with light blows, giving breaks to allow bone expansion and decrease risk of fracture. The selected Depuy Altrx Ceramic Head, size 36+5mm, was then placed onto the clean and dry trunnion and secured with impaction onto the tapered fit. The leg was brought back out of extension and adduction and reduced with traction and internal rotation. Stability was confirmed with no shuck at 90 degrees of external rotation and 30 degrees of extension. No impingement through range of motion arc. Final x-ray images were obtained with fluoroscopy to confirm adequate positioning and no intraoperative fracture. The deep tissues were thoroughly irrigated with Irrisept chlorhexadine solution. The capsule was then reapproximated with the previously placed Ethibond sutures. The TFL fascia was finally closed with a No. 2 Stratafix, barbed suture. Deep tissues were then reapproximated with 0 Vicryl and a running 2-0 Vicryl. The skin was closed with a running 4-0 Monocryl in a subcuticular fashion. This was reinforced with skin glue. A Mepilex silver dressing was applied. At the end of the case, all counts were correct. Kobe was transferred to the hospital bed without difficulty and suffering no apparent complication. Kobe has a good prognosis. Physical therapy will start today and without restrictions, weight-bearing as tolerated. Aspirin 81mg BID will be used for DVT prophylaxis.
--- NOTE | 2022-03-18 15:11 | PT.INIE ---
Date of service: 03/18/22 PT Notes Visit Reasons: Bilateral Hip DJD Physical Therapy Day Surgery Initial Evaluation Date: 03/18/2022 Referring Doctor: Kofi Mcginnis MD PT Orders: PT CONSULT: S/p Ortho surgery Precautions: WBAT on BLE with AD. Patient Profile/Admitting Diagnosis: Kobe is a 67-year-old male with degenerative joint disease of bilateral hips and is status post bilateral total anterior hip arthroplasties on postoperative day 0. PMHX: Medical History? Anxiety Basal cell carcinoma (BCC) Bradycardia Carpal tunnel syndrome Erectile dysfunction Gout Hyperlipidemia Hypertension Lumbar disc disease Obstructive sleep apnea Right retinal detachment Sarcoidosis of lung Tubular adenoma Ulnar neuropathy Surgical History? History of back surgery History of mandibular surgery 2010 Hx of detached retina repair 11/2020 Hx of discectomy 07/2002 Hx of vasectomy Social History/Home Situation: Kobe lives with in a private home with 3 steps to enter with no rails. 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 Independent with all aspects of ADLs prior to surgery. Equipment Owned/DME: None Subjective: Reported lightheadedness when he stood up from edge of bed for the first time and needed to be placed back down due to blood pressure decrease. Objective: General Observation: Appeared drowsy initially. Report of lightheadedness worsened with first sit<>stand. Mental Status: Drowsy but oriented as to person, place, and date Pain: Denies ROM: Right Lower Extremity: Hip flexion WFL. Hip abduction WFL. Knee flexion WFL. Ankle dorsiflexion WFL. Ankle plantarflexion WFL. Left Lower Extremity: Hip flexion WFL. Hip abduction WFL. Knee flexion WFL. Ankle dorsiflexion WFL. Ankle plantarflexion WFL. Strength: Right Lower Extremity: Hip flexors 4/5. Hip abductors 4/5. Knee flexors 5/5. Knee extensors 4/5. Ankle dorsiflexors 5/5. Ankle plantarflexors 5/5. Left Lower Extremity: Hip flexors 4/5. Hip abductors 4/5. Knee flexors 5/5. Knee extensors 4/5. Ankle dorsiflexors 5/5. Ankle plantarflexors 5/5. Sensation: Numbness in buttock area resolved per Nurse Mónica prior to PT arrival Bed Mobility/Transfers: Supine to sit contact-guard assist Sit to stand contact-guard assist Stand to sit contact-guard assist Bed to chair contact-guard assist Gait: Patient tolerated short distance ambulation of 15 feet + 75 feet + 75 feet using front wheeled walker with contact-guard assist of PT and wheelchair followed by nurse slot floor supervisor Bhavana. Reported of being lightheaded again after the first 75 feet requiring seated rest. No loss of balance. Nor shortness of breath. Stairs: Tolerated up and down 6 x 4 inch steps while holding onto bilateral rails with step to gait pattern requiring contact-guard assist of 2 for safety with out increase in report of lightheadedness. Did a second trial utilizing a single-point cane on one side and a rail on the other side no report of increased pain or increased lightheadedness. Balance: Static Sitting: Normal Dynamic Sitting: Normal Static Standing: Fair Dynamic Standing: Fair Special Tests: Mobility Limitations Standardized Measure [facility] 6 clicks Basic Mobility Inpatient Short Form: Raw Score: 18 CMS Score: 47% deficit Informed Consent/Education: Patient instructed in purpose of PT consult. Packet containing ALEISHA exercise protocol has been given to patient. Education and training on initial set of exercises that can be done at home have been completed with patient and patient's . Assessment: Kobe requires the use of a front-wheeled walker for all mobility ADL performance in order to maximize independence and reduce fall risk. Mobility performance today limited by BP reduction resulting to lightheadedness due to postoperative status needing more than 1 visit for this patient to ensure safety of mobility performance. Patient will have the support of Maribell as he recovers at home. Patient presents with clinical signs and symptoms consistent with current/admitting diagnoses that have resulted to mobility limitations, gait instability, generalized weakness, and impairment of motor control as demonstrated by the following impairment level findings: 1. Decreased strength to be hip major muscle groups 2. Impaired standing balance 3. Lightheadedness Impairments are contributing to the following functional limitations: 1. Inability to safely ambulate without assistive device 2. Increase completion time for mobility ADL performance 3. Increased fall risk Patient is assessed as a 10039 moderate complexity based on the following: History: 67-year-old female with impairment level findings, functional limitations, and past medical history as indicated above Examination: Demonstrable impairment in strength, balance, and mobility level with underlying impairments and functional limitations as documented above Presentation: Evolving Decision Makin moderate complexity Goals: N/A. PT evaluation and 1-2 treatment sessions only for functional mobility training using recommended AD and for HEP instruction. Plan of Care/Treatment Plan: N/A. PT evaluation and 1-2 treatment session only for functional mobility training using recommended AD and for HEP instruction. DISCHARGE RECOMMENDATIONS: [] Home with no services [] [] Home with services [specify] [X] Home with outpatient PT. Home when medically cleared by orthopedic surgeon. Will benefit from outpatient PT services in order to facilitate return to independent community ambulation and achieve optimal functional mobility outcomes. [] SNF for continued rehabilitation [] [] [facility] [] [] SNF versus LTC based on ability to participate and progress [] TREATMENT CODE/TIME: 75021 x 22 minutes, 9753 0 x 40 minutes starting at 13:20 and 15:11 PM. Thank you for the opportunity to participate in the care of this patient. Ingrid Mcdonald PT, DPT, CLT [facility] [place], [place]
--- NOTE | 2022-03-18 15:28 | W.ANESPOSTOP ---
Postoperative Evaluation Date, Time and Location Date Performed: 03/18/22 Time Performed: 15:28 Patient Location: Day Surgery Unit Vital Signs Most Recent Imported Vital Signs: Most Recent Vital Signs Temp Pulse Resp BP Pulse Ox 36.1 C L 41 L 16 101/70 96 03/18/22 13:35 03/18/22 13:35 03/18/22 13:35 03/18/22 13:35 03/18/22 13:35 Pain Score Most Recent Pain Score: Most Recent Pain Score Pain Level 0 03/18/22 13:35 Assessment Mental Status: Awake (Alert & Oriented to Patient Baseline) Airway and Respiratory Function: Patent airway with normal (patient baseline) respiratory exam Cardiovascular Function: Hemodynamically Stable Hydration Status: Adequately Hydrated Nausea & Vomiting: No Nausea or Vomiting Pain: Pain is tolerable per patient Peripheral Nerve Block: Patient did not receive a nerve block Postoperative Comments:: complained of dizziness while up and ambulating. feels good now, just wants to go home. b/p and dizzyness to be reassessed by [facility] prior to discharge.
== END 2022-03-18 16:37 | disposition home or self-care (01) ==
PROVIDERS: PCP Family Medicine; Visit Provider Student in an Organized Health Care Education/Training Program
PROC: 0SR90JZ Replacement of Right Hip Joint with Synthetic Substitute, Open Approach (ICD-10-PCS; CPT 27130; principal; 2022-03-18 07:30)
DX: M16.0 Bilateral primary osteoarthritis of hip (principal); I10 Essential (primary) hypertension; E78.5 Hyperlipidemia, unspecified; G47.33 Obstructive sleep apnea (adult) (pediatric)
CPT/HCPCS: 27130; 20985; 97162; 97530; 73501; J0690; J2250

== ENCOUNTER 2022-03-31 15:15 | Outpatient (CLI) | payer OTHER, SELFPAY ==
--- NOTE | 2022-03-31 14:46 | DI.RAD_ITS ---
Exam(s) XR HIP PELVIS ADULT BL EXAM: XR HIP PELVIS ADULT BL INDICATION: f/u bilateral ALEISHA. COMPARISON: CR XR PELVIS AP from 11/11/2021 XA XR HIP LT IN OR from 03/18/2022 XA XR HIP RT IN OR from 03/18/2022 TECHNIQUE: 2D digital imaging was performed. Three views. FINDINGS: Stable appearance of bilateral hip prostheses. No abnormal surrounding bony lucencies. DATA REPOSITORY: RADIATION DOSE DELIVERED:
== END 2022-03-31 15:16 | disposition home or self-care (01) ==
LOC: DIORS 15:15
PROVIDERS: PCP Family Medicine; Referring Provider Family Medicine; Visit Provider Student in an Organized Health Care Education/Training Program
DX: M16.0 Bilateral primary osteoarthritis of hip (principal); Z96.643 Presence of artificial hip joint, bilateral
CPT/HCPCS: 73521

== ENCOUNTER 2022-06-13 09:35 | Outpatient (CLI) | payer OTHER, SELFPAY ==
--- NOTE | 2022-06-13 08:00 | DI.RAD_ITS ---
Exam(s) XR HIP LT AP LAT ONLY EXAM: XR HIP LT AP LAT ONLY CLINICAL HISTORY: left hip pain. TECHNIQUE: 2D digital imaging was performed. Two views. COMPARISON: CR XR HIP PELVIS ADULT BL from 03/31/2022 FINDINGS: There has been no change in the alignment of the bilateral hip prostheses. No abnormal bony lucencie s are seen. DATA REPOSITORY: RADIATION DOSE DELIVERED:
== END 2022-06-13 09:36 | disposition home or self-care (01) ==
LOC: DIORS 09:35
PROVIDERS: PCP Family Medicine; Referring Provider Family Medicine; Visit Provider Physician Assistant
DX: Z96.643 Presence of artificial hip joint, bilateral (principal)
CPT/HCPCS: 73502

== ENCOUNTER 2022-10-10 07:22 | Day surgery (SDC) | payer OTHER, SELFPAY ==
[2022-10-10 07:48] VITALS: BP 144/89; PULSE 79; RESP 16; TEMP 36.2; O2SAT 97
[2022-10-10] MEDS: Tropicam./Phenyleph. (1/2.5%) 5 ML BTL OD ×3 (07:52→08:09)
--- NOTE | 2022-10-10 08:18 | W.ANESPRE ---
General Info Date of Service Date Performed: 10/10/22 Height: 5 ft 6 in Weight: 99.7 kg Body Mass Index (BMI): 35.4 Surgical Procedure: Operation Date: 10/10/22 09:40 Proposed Procedure Side Surgeon p Cataract Extraction with IOL Implant Right Lennox Powers MD Meds Allergies and Home Medications Allergies Allergy/AdvReac Type Severity Reaction Status Date / Time lactose AdvReac Stomach Verified 10/10/22 07:45 Upset Home Medication Medication Instructions Recorded amlodipine 10 mg tablet 10 mg PO DAILY 05/24/21 garlic 1,000 mg capsule 4,000 mg PO DAILY 05/24/21 metoprolol tartrate 50 mg tablet 50 mg PO BID 05/24/21 sildenafil 100 mg tablet (Viagra) 100 mg PO DAILY PRN 05/24/21 multivitamin 1 tab PO DAILY 05/28/21 acetaminophen 500 mg tablet 1,000 mg PO Q8H PRN pain #90 tabs 03/18/22 Current Visit Medications: Current Medications Generic Name Dose Route Start Last Admin Trade Name Freq PRN Reason Stop Dose Admin Acetaminophen 1,000 mg 10/10/22 06:00 Acetaminophen 500 Mg Tab PO 11/09/22 05:59 Q4H PRN PRN Balanced Salt Solution 500 ml 10/10/22 06:00 Balanced Salt Soln.-Plus 500 Ml Bag OP 11/09/22 05:59 DIRECTED [facility] Miscellaneous Medication 0 ml 10/10/22 06:00 Prednisolone 1%, Moxifloxacin 0.5%, Nepafenac 0.1% 5ml Btl OD 11/09/22 05:59 DIRECTED ELIEZER Miscellaneous Medication 0 ml 10/10/22 06:00 10/10/22 08:09 Tropicam./Phenyleph. 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 H61.813 Impacted cerumen, left ear H61.22 External nasal lesion L98.9 Primary localized osteoarthritis of right hip M16.11 Primary osteoarthritis of left hip M16.12 Lumbar spondylosis M47.816 Degenerative disc disease, lumbar M51.36 Medical History Medical History Anxiety Basal cell carcinoma (BCC) Bradycardia Carpal tunnel syndrome Erectile dysfunction Gout Hyperlipidemia Hypertension Lumbar disc disease Obstructive sleep apnea Right retinal detachment Sarcoidosis of lung Tubular adenoma Ulnar neuropathy Surgical History Surgical History History of back surgery History of mandibular surgery 2010 Hx of colonoscopy Hx of detached retina repair 11/2020 Hx of discectomy 07/2002 Hx of vasectomy Tobacco Smoking/Tobacco Use Status: Never Alcohol Alcohol Intake: current Alcohol intake frequency: a few times a week Alcohol type: beer and wine Substance Use Substance use: Never Substance use type: does not use Vital Signs and Lab Results Vital Signs Most Recent Vital Signs in EMR: Most Recent Vital Signs Temp Pulse Resp BP Pulse Ox 36.2 C L 79 16 144/89 H 97 10/10/22 07:48 10/10/22 07:48 10/10/22 07:48 10/10/22 07:48 10/10/22 07:48 Lab Results Blood Type / Crossmatch: No Data to Display Complete Blood Count: No Data to Display Complete Metabolic Panel: No Data to Display Liver Function Panel: No Data to Display Coagulation Panel: No Data to Display Cardiac Panel: No Data to Display Arterial Blood Gas: No Data to Display Venous Blood Gas: No Data to Display Pancreas Panel: No Data to Display Thyroid Panel: No Data to Display Infectious Disease: No Data to Display Blood Cultures: No Data to Display Toxicology Panel: No Data to Display Anesthesia Assessment and Plan Anesthesia History Personal History: No History of Anesthesia Complications Family History: No Family History of Anesthesia Complications Exercise Tolerance Exercise Tolerance: Metabolic Equivalents>4 Pertinent Negatives Pertinent Negatives: No Symptoms of GERD, No Major Cardiovascular Symptoms or Complaints and No Major Pulmonary Symptoms or Complaints Cardiac & Pulmonary Exam Cardiac Exam: Normal S1/S2 Heart Sounds Pulmonary Exam: Clear Bilateral Breath Sounds Implantable Cardiac Device Does patient have a Pacemaker or an ICD?: No Airway Exam Known Difficult Airway: No Mallampati Class: 1 Mouth Opening: Normal (> 3cm) Thyromental Distance: Greater than 3 cm Neck Range of Motion: Full ROM Neck Circumference: Thick Teeth Condition: Normal Dentition ASA Classification ASA Score: ASA 2 Emergency Case?: No NPO Status NPO Status: NPO Clears >2 hours, Solids >8 hours Anesthesia Plan Resuscitation Status: Full Code Anesthesia Technique: MAC Anesthesia Airway Planned: Natural Airway Monitors Used: Standard Monitors
[2022-10-10 08:23] VITALS: BMI 35.4
[2022-10-10] MEDS: Tetracaine 0.5% 4 ML BTL OD (09:14)
[2022-10-10] MEDS: Povidone-Iodine Ophth 30 ML BTL (09:15)
[2022-10-10] MEDS: Duovisc Viscoelastic System EACH 1 EACH (09:22)
[2022-10-10] MEDS: Balanced Salt Soln.-PLUS 500 ML BAG OP (09:22)
[2022-10-10] MEDS: Phenylephrine/Lidocaine (15/10) MG/ML 1 ML VIAL (09:23)
[2022-10-10] MEDS: Lidocaine 1% Pres-Free 5 ML VIAL (09:23)
[2022-10-10] MEDS: Trypan Blue 0.06% 0.5 ML SYR (09:28)
[2022-10-10 09:58] VITALS: BP 152/84; PULSE 53; RESP 16; TEMP 36.3; O2SAT 97
--- NOTE | 2022-10-10 09:59 | W.PM.DSUDISC ---
Date of service: 10/10/22 Time of Service: 09:59 Discharge Plan Disposition Patient Disposition: Home Discharge Details Attending Provider: Lennox Powers Primary Care Provider: Tin Garcia Home Meds and New Rx's Prescriptions: No Action garlic 1,000 mg capsule 4,000 mg PO DAILY sildenafil [Viagra] 100 mg tablet 100 mg PO DAILY PRN Rx Instructions: administer 30 minutes to 4 hours before activity amlodipine 10 mg tablet 10 mg PO DAILY metoprolol tartrate 50 mg tablet 50 mg PO BID multivitamin Tablet 1 tab PO DAILY acetaminophen 500 mg tablet 1,000 mg PO Q8H PRN (Reason: pain) Qty: 90 3RF Discharge Instructions Stand Alone Forms: Post-op Topical Cataract, Derrek Yost ([facility]) Discharge Orders Discharge Orders: Discharge Order (Routine); Ordered 10/10/22 Ordered By: Lennox Powers DS: Diagnosis Discharge Diagnosis (1) Posterior subcapsular age-related cataract, right eye: Status: Resolved (2) Nuclear age-related cataract, right eye: Status: Resolved (3) History of vitrectomy: Status: Chronic
--- NOTE | 2022-10-10 10:00 | ROE_ITS ---
Date of service: 10/10/22 Time of Service: 10:00 Operative Note Operative Note DATE OF PROCEDURE: 10/10/22 PRE-OP DIAGNOSIS: Dense nuclear/posterior subcapsular cataract, right eye History of pars plana vitrectomy/endolaser/C3F8 gas for retinal detachment repair, right eye POST-OP DIAGNOSIS: same PROCEDURE: Cataract extraction using phacoemulsification with intraocular lens implant, rig ht eye Insertion of capsular tension ring, right eye SURGEON: Lennox Powers ANESTHESIA TYPE: Local By Surgeon and MAC Refer to Anesthesia Record PATHOLOGY: none sent COMPLICATIONS: None Patient was transported to: same day Patient's condition: stable Implants: Prabhu and Prabhu Sensar AR40e MOrcher Type 15A capsular tension ring Indications: Progressive decreased vision due to cataract, right eye Findings: Severe diffuse zonular laxity, right eye Procedure Description: CATARACT SURGERY OPERATIVE REPORT PREOPERATIVE DIAGNOSIS: 1. Dense nuclear/posterior subcapsular cataract, right eye 2. History of pars plana vitrectomy/endolaser/C3F8 gas for retinal detachment, right eye POSTOPERATIVE DIAGNOSIS: Same OPERATION: 1. Cataract extraction using phacoemulsification with posterior chamber intraocular lens implant, right eye. 2. Insertion of Morcher Type 15A capsular tension ring IOL: IOL Belly Dancer/Model: Prabhu & Prabhu Sensar AR40e IOL Power: + 14.5 diopters IOL Serial Number: [id number] Optic Diameter: 6.0 mm Haptic/Overall Diameter: 13.0 mm PHACO INFO: Stevie [employer] Vision System with OZil and Active Fluidics Cumulative Dispersed Energy (CDE): 21.25 seconds SURGEON: Lennox Powers MD, JUDE ANESTHESIA: Monitored A [facility] (MAC), with local sub-tenon's anesthetic infiltration COMPLICATIONS: None SPECIMENS: None INDICATIONS FOR PROCEDURE: The patient is a 67-year-old gentleman who previously suffered a retinal detachment in the right eye and underwent subsequent pars plana vitrectomy with endolaser and gas. He has developed a dense nuclear/posterior subcapsular cataract in the right eye. Cataract surgery is undertaken in attempt to improve and maximize his vision, although postoperative visual acuity will be limited by the presence of pre-existing retinal pathology. See office notes for detailed information. PROCEDURE: The correct surgical eye was identified and marked as the right eye and the pupil was dilated in the preoperative area using mydriatics and cycloplegics. The dilated pupil size was 7.0 mm. The patient elected to proceed without oral sedation. The patient was brought to the operating room where cardiopulmonary monitoring was instituted and surgical time-out was performed, confirming the correct operative eye and IOL power. Topical anesthesia was administered and ophthalmic povidone-iodine 5% was instilled into the conjunctival fornices. The matt-ocular area was prepped with Betadine 10% solution and draped in the usual sterile fashion for intraocular surgery, including an aperture drape. A Tegaderm transparent film dressing was cut in half and used to cover the lashes and lid margins. Care was taken to sequester the lashes and lid margins under the Tegaderm dressing. A lid speculum was placed between the lids of the operative eye and the Stevie [employer] Revalia operating microscope was maneuvered into position. Alex scissors were then used to make a conjunctival buttonhole approximately 6mm posterior to the limbus in the inferonasal quadrant. Blunt dissection was carried out to expose bare sclera, and a blunt-tipped sub-tenon?s anesthesia cannula was introduced and passed posteriorly along the globe where non- preserved plain lidocaine was injected into posterior sub-Tenon?s space. A sideport knife was used to make a paracentesis port. VisionBlue was injected into the anterior chamber and allowed to sit for 30 seconds, after which it was irrigated out with balanced salt solution. Intraocular phenylephrine/lidocaine was injected into the anterior chamber.. The anterior chamber was filled with viscoelastic. A keratome knife was used to construct a 2-plane near-clear corneal tunnel extending 2.0mm into clear cornea. A flap was raised on the anterior capsule and capsulorhexis forceps were used to complete a continuous curvilinear capsulorhexis of 5.5 mm. The anterior capsule was noted to be very thin, with a deep anterior chamber and loo se zonules. Balanced salt solution was then used to perform cortical cleaving hydrodissection and nuclear hydrodelineation until the lens could be freely rotated within the capsular bag. The lens nucleus was then disassembled and removed within the capsular bag and iris plane using phacoemulsification. Residual cortical material was removed using the irrigation/aspiration handpiece. There was a dense adherent sheet of posterior subcapsular plaque. Cohesive viscoelastic was used to dissect the posterior subcapsular plaque from the posterior capsule. Extensive cortical cleanup was performed. There was a significant amount of adherent posterior subcapsular plaque in the equatorial region which could not be safely removed despite disco dissection and polishing. The posterior capsule was carefully polished to remove as much residual lens epithelial cells as safely possible. A dense central posterior subcapsular plaque remained, which appeared to be mostly on the posterior face of the posterior capsule. . The capsular bag was then inflated and the anterior chamber deepened with viscoelastic. A Morcher Type 15A capsular tension ring was then and inserted into the capsular bag without difficulty. The lens implant described above was inserted into the capsular bag using the Prabhu and Prabhu [place] injector. A Kuglen hook was used to dial the IOL into position. Residual viscoelastic was then removed first from posterior to the IOL, then from the anterior chamber using the I/A handpiece. The lens implant was noted to center nicely within the capsular bag. The incisions were stromally hydrated, and the anterior chamber was reformed using BSS. Then 0.5cc of moxifloxacin 1.0mg/ml were injected into the capsular bag and anterior chamber. The incisions were checked with a Weck spear and found to be secure. Several drops of ophthalmic povidone-iodine 5% were then applied to the eye followed by two drops of Imprimis combination prednisolone/moxifloxacin/nepafenac solution. The drapes were removed and a clear plastic protective eye shield was placed over the eye. The patient was then returned to Same Day Surgery in stable condition.
--- NOTE | 2022-10-10 10:34 | W.ANESPOSTOP ---
Postoperative Evaluation Date, Time and Location Date Performed: 10/10/22 Time Performed: 10:00 Patient Location: Day Surgery Unit Vital Signs Most Recent Imported Vital Signs: Most Recent Vital Signs Temp Pulse Resp BP Pulse Ox 36.3 C L 53 L 16 152/84 H 97 10/10/22 09:58 10/10/22 09:58 10/10/22 09:58 10/10/22 09:58 10/10/22 09:58 Pain Score Most Recent Pain Score: Most Recent Pain Score Pain Level 0 10/10/22 09:58 Assessment Mental Status: Awake (Alert & Oriented to Patient Baseline) Airway and Respiratory Function: Patent airway with normal (patient baseline) respiratory exam Cardiovascular Function: Hemodynamically Stable Hydration Status: Adequately Hydrated Nausea & Vomiting: No Nausea or Vomiting Pain: Pt. Denies Any Pain Peripheral Nerve Block: Patient did not receive a nerve block
== END 2022-10-10 10:31 | disposition home or self-care (01) ==
PROVIDERS: PCP Family Medicine; Visit Provider Ophthalmology
PROC: (CPT 66984; principal; 2022-10-10 09:30)
DX: H25.041 Posterior subcapsular polar age-related cataract, right eye (principal); H25.11 Age-related nuclear cataract, right eye; Z98.890 Other specified postprocedural states
CPT/HCPCS: 66984; V2632

== ENCOUNTER 2023-03-23 14:55 | Outpatient (CLI) | payer OTHER, SELFPAY ==
--- NOTE | 2023-03-23 08:00 | DI.RAD_ITS ---
Exam(s) XR HIP PELVIS ADULT BL EXAM: XR HIP PELVIS ADULT BL CLINICAL HISTORY: 1 year follow-up status post bilateral THAs. TECHNIQUE: 2D digital imaging was performed. COMPARISON: CR XR HIP LT AP LAT ONLY from 06/13/2022 FINDINGS: 3 views There are no pelvic nor hip fractures. Bilateral hip prostheses again noted and both remain in satis factory position alignment with no evidence of fracture or loosening on either side. No evidence of osteomyelitis. IMPRESSION: Stable satisfactory appearance. No acute findings DATA REPOSITORY: RADIATION DOSE DELIVERED:
== END 2023-03-23 14:56 | disposition home or self-care (01) ==
LOC: DIORS 14:55
PROVIDERS: PCP Family Medicine; Visit Provider Student in an Organized Health Care Education/Training Program
DX: Z96.643 Presence of artificial hip joint, bilateral (principal); Z47.1 Aftercare following joint replacement surgery
CPT/HCPCS: 73521

== ENCOUNTER 2024-03-04 09:49 | Day surgery (SDC) | payer OTHER, SELFPAY ==
--- NOTE | 2024-03-03 12:55 | W.PM.DSUDISC ---
Date of service: 03/04/24 Time of Service: 13:01 Discharge Plan Disposition Patient Disposition: Home Condition: Good Discharge Details Reason For Visit: screening colonoscopy Attending Provider: Stanley Garcia Primary Care Provider: Jackie Marin Home Meds and New Rx's Prescriptions: Continued garlic 1,000 mg capsule 4,000 mg PO DAILY sildenafil [Viagra] 100 mg tablet 100 mg PO DAILY PRN Rx Instructions: administer 30 minutes to 4 hours before activity amlodipine 10 mg tablet 10 mg PO DAILY metoprolol tartrate 50 mg tablet 50 mg PO BID multivitamin Tablet 1 tab PO DAILY furosemide 20 mg tablet 20 mg PO DAILY Discontinued bisacodyl [Dulcolax (bisacodyl)] 5 mg tablet,delayed release (DR/EC) 5 mg PO ONCE Qty: 4 0RF Rx Instructions: Take per colonoscopy instructions provided by ordering providers office polyethylene glycol 3350 17 gram/dose powder 17 g PO ONCE Qty: 238 0RF Rx Instructions: Take per colonoscopy instructions provided by ordering providers office Discharge Instructions Additional Instructions: Kobe, I am sorry to tell you that we were not able to complete your colonoscopy today, because there is quite a bit of retained solid stool that makes safe and adequate visualization impossible. Again, I appreciate your patience through the day can I am so sorry that we were not able to see everything as we needed. I will have the office reach out to you with instructions for another attempt at prepping, and to reschedule another colonoscopy at your convenience. 1. If tolerated, consume a soft, low fiber diet for 1-2 days. [address] not drive, drink alcohol, operate machinery, make critical decisions, or do activities that require coordination or balance for 24 hours. 3. Because air was put into your colon during the procedure, expelling air from your rectum (passing gas or farting) is normal. 4. You may not have a bowel movement for 1-3 days because of the colonoscopy prep. This is normal. 5. Go directly to the emergency room if you notice any of the following: Develop chills (warm to touch), or if you have a thermometer and your temperature is above 101 Difficulty breathing or difficultly swallowing Persistent vomiting Severe abdominal pain, other than gas cramps Severe chest pain Black, tarry stools Any bleeding ? exceeding one tablespoon 6. Call your physician if the site where your intravenous was started becomes red, swollen, painful, and warm to touch. 7. Your physician has reviewed your pre-procedure medications. Please continue to take those medications as previously ordered. You will be given specific information/education regarding any changes to your medications before leaving. Activity:: Activity as Tolerated Diet:: As Tolerated Discharge Orders Discharge Orders: Discharge Order (Routine); Ordered 03/03/24 Ordered By: Stanley Garcia DS: Diagnosis Discharge Diagnosis (1) Encounter for screening colonoscopy: Status: Acute Asessment and Plan: Incomplete colonoscopy today because of inadequate prep; rescheduled extended prep
--- NOTE | 2024-03-03 12:56 | COLE_ITS ---
Date of service: 03/04/24 Time of Service: 13:07 Colonoscopy Report Date of procedure: 03/04/24 Pre-op diagnosis general: screening colonsocopy Post-op diagnosis procedure note: other (Incomplete colonoscopy secondary to inadequate) Procedure: colonoscopy Surgeon: Stanley Garcia Anesthesia Type: General:No Airway Estimated blood loss (mL): 0 Pathology: none sent Complications: None Disposition: same day Indications: Kobe is 69 years old. He needs his next screening colonsocopy Prep: Miralax/Dulcolax Procedure Start Time: 12:43 Procedure End Time: 12:56 Findings: Incomplete colonoscopy secondary to inadequate prep Procedure Description: After the induction of anesthesia, and with the patient in left lateral decubitus position, I began by performing an external anorectal exam.? Perineum and skin were normal, as was the anal verge.? There was no evidence of external hemorrhoids.? Next, I performed a digital rectal exam.? I did not appreciate any abnormal findings.? Next, I advanced a colonoscope into the rectal vault.? I performed retroflexion.? This appeared normal.? Using insufflation, I then advanced the colonoscope beyond the rectal folds and into the sigmoid colon before advancing towards the cecum.? At the rectosigmoid junction we encountered a significant amount of semisolid, solid, and liquid stool. Although I was able to navigate around the safely, and eventually all the way over to the cecum, it was nearly impossible to see the mucosa. I then began slowly withdrawing the colonoscope. Quite a bit of time was spent in the cecum just trying to get that clear for visualization. Unfortunately, there is too much solid and semisolid stool to clear through the scope. In fact, the scope was clogged. Therefore, it was gently retracted along the length of the colon and removed from the rectum. Maxwell Bowel Prep Maxwell Bowel Prep Right Colon: 0 Left Colon: 0 Transverse Colon: 0 Total Score: 0
[2024-03-04 10:25] VITALS: BP 131/77; PULSE 49; RESP 20; TEMP 36.3; O2SAT 97
[2024-03-04] MEDS: Normal Saline Flush 10 ML SYR IV (10:53)
--- NOTE | 2024-03-04 12:29 | W.ANESPRE ---
General Info Date of Service Date Performed: 03/04/24 Height: 5 ft 6 in Weight: 97.6 kg Body Mass Index (BMI): 34.7 Surgical Procedure: Operation Date: 03/04/24 11:35 Proposed Procedure Side Surgeon p Antonia Garcia MD Meds Allergies and Home Medications Allergies Allergy/AdvReac Type Severity Reaction Status Date / Time lactose AdvReac Stomach Verified 03/04/24 10:16 Upset Home Medication ?Medication ?Instructions ?Recorded amlodipine 10 mg tablet 10 mg PO DAILY 05/24/21 garlic 1,000 mg capsule 4,000 mg PO DAILY 05/24/21 metoprolol tartrate 50 mg tablet 50 mg PO BID 05/24/21 sildenafil 100 mg tablet (Viagra) 100 mg PO DAILY PRN 05/24/21 multivitamin 1 tab PO DAILY 05/28/21 furosemide 20 mg tablet 20 mg PO DAILY 12/24/23 Current Visit Medications: Current Medications Generic Name Dose Route Start Last Admin Trade Name Freq PRN Reason Stop Dose Admin IV Miscellaneous Supplies 1 each 03/04/24 06:00 Iv Access IV 04/02/24 23:59 DIRECTED ELIEZER Ondansetron HCl 4 mg 03/03/24 12:57 Ondansetron 4 Mg/2 Ml Vial IVP 04/02/24 12:56 Q4H PRN PRN Nausea / Vomiting Sodium Chloride 0 ml 03/04/24 06:00 03/04/24 10:53 Normal Saline Flush 10 Ml Syr IV 04/02/24 23:59 10 ml PRN PRN Administration Sodium Chloride 0 ml 03/04/24 06:00 Normal Saline 10 Ml Vial IJ 04/02/24 23:59 DIRECTED PRN Sterile Water 0 ml 03/04/24 06:00 Water,Injection,Sterile 10 Ml Vial IJ 04/02/24 23:59 DIRECTED PRN PFSH Active Problems Active Problems: Problem Status Onset Code Encounter for screening colonoscopy Acute Z12.11 Tinnitus, left Acute H93.12 Obstructive sleep apnea Chronic G47.33 Other specified disorders of external ear, unspecified ear Acute H61.899 Posterior subcapsular age-related cataract, right eye Resolved H25.041 Nuclear age-related cataract, right eye Resolved H25.11 History of vitrectomy Chronic Z98.890 History of bilateral hip replacements Acute 03/18/22 Z96.643 Asymmetrical sensorineural hearing loss Acute H90.5 Exostosis of both external ear canals Acute H61.813 Impacted cerumen, left ear Acute H61.22 External nasal lesion Acute L98.9 Primary localized osteoarthritis of right hip Acute M16.11 Primary osteoarthritis of left hip Acute M16.12 Lumbar spondylosis Acute M47.816 Degenerative disc disease, lumbar Acute M51.36 Medical History Medical History Nocturia Morbid obesity Lesion of ulnar nerve Hx of skin cancer, basal cell Arthritis of spine Arthritis, hip Diplopia Sarcoidosis of lung Ulnar neuropathy Right retinal detachment Hyperlipidemia Hypertension Anxiety Gout Erectile dysfunction Carpal tunnel syndrome Lumbar disc disease Tubular adenoma Bradycardia Basal cell carcinoma (BCC) Surgical History Surgical History S/P transposition of nerve right ulnar nerve 07/07/2017 Hx of colonoscopy Hx of detached retina repair 11/2020 History of back surgery Hx of discectomy 07/2002 History of mandibular surgery 2010 Hx of vasectomy Tobacco Smoking/Tobacco Use Status: Never Alcohol Alcohol Intake: current Alcohol intake frequency: a few times a week Alcohol type: beer and wine Substance Use Substance use: Never Substance use type: does not use Vital Signs and Lab Results Vital Signs Most Recent Vital Signs in EMR: Most Recent Vital Signs Temp Pulse Resp BP Pulse Ox 36.3 C L 49 L 20 131/77 97 03/04/24 10:25 03/04/24 10:25 03/04/24 10:25 03/04/24 10:25 03/04/24 10:25 Lab Results Blood Type / Crossmatch: No Data to Display Complete Blood Count: No Data to Display Complete Metabolic Panel: No Data to Display Liver Function Panel: No Data to Display Coagulation Panel: No Data to Display Cardiac Panel: No Data to Display Arterial Blood Gas: No Data to Display Venous Blood Gas: No Data to Display Pancreas Panel: No Data to Display Thyroid Panel: No Data to Display Infectious Disease: No Data to Display Blood Cultures: No Data to Display Toxicology Panel: No Data to Display Anesthesia Assessment and Plan Anesthesia History Personal History: No History of Anesthesia Complications Family History: No Family History of Anesthesia Complications Exercise Tolerance Exercise Tolerance: Metabolic Equivalents>4 Pertinent Negatives Pertinent Negatives: No Symptoms of GERD Cardiac & Pulmonary Exam Cardiac Exam: Normal S1/S2 Heart Sounds Pulmonary Exam: Clear Bilateral Breath Sounds Implantable Cardiac Device Does patient have a Pacemaker or an ICD?: No Airway Exam Known Difficult Airway: No Mallampati Class: 1 Mouth Opening: Normal (> 3cm) Thyromental Distance: Greater than 3 cm Neck Range of Motion: Full ROM Neck Circumference: Thick Teeth Condition: Normal Dentition ASA Classification ASA Score: ASA 2 Emergency Case?: No NPO Status NPO Status: NPO Clears >2 hours, Solids >8 hours Anesthesia Plan Resuscitation Status: Full Code Anesthesia Technique: General Anesthesia Airway Planned: Natural Airway Monitors Used: Standard Monitors
[2024-03-04 12:32] VITALS: BMI 34.7
[2024-03-04 13:03] VITALS: BP 94/60; PULSE 50; RESP 18; TEMP 36.8; O2SAT 95
[2024-03-04 13:12] VITALS: BP 98/63; PULSE 50; RESP 18; O2SAT 93
--- NOTE | 2024-03-04 13:24 | W.ANESPOSTOP ---
Postoperative Evaluation Date, Time and Location Date Performed: 03/04/24 Time Performed: 13:24 Patient Location: Day Surgery Unit Vital Signs Most Recent Imported Vital Signs: Most Recent Vital Signs Temp Pulse Resp BP Pulse Ox 36.8 C 50 L 18 98/63 L 93 03/04/24 13:03 03/04/24 13:12 03/04/24 13:12 03/04/24 13:12 03/04/24 13:12 Pain Score Most Recent Pain Score: Most Recent Pain Score Pain Level 0 03/04/24 13:03 Assessment Mental Status: Awake (Alert & Oriented to Patient Baseline) Airway and Respiratory Function: Patent airway with normal (patient baseline) respiratory exam Cardiovascular Function: Hemodynamically Stable Hydration Status: Adequately Hydrated Nausea & Vomiting: No Nausea or Vomiting Pain: Pt. Denies Any Pain Peripheral Nerve Block: Patient did not receive a nerve block
[2024-03-04 13:26] VITALS: BP 115/64; PULSE 52; RESP 18; TEMP 36.7; O2SAT 95
== END 2024-03-04 13:38 | disposition home or self-care (01) ==
LOC: SUR 09:49
PROVIDERS: PCP Nurse Practitioner Family; Visit Provider Surgery
PROC: 0DJD8ZZ Inspection of Lower Intestinal Tract, Via Natural or Artificial Opening Endoscopic (ICD-10-PCS; CPT 45378; principal; 2024-03-04 11:30)
DX: Z12.11 Encounter for screening for malignant neoplasm of colon (principal)
CPT/HCPCS: 45378; J2704

== ENCOUNTER 2024-04-01 08:58 | Day surgery (SDC) | payer OTHER, SELFPAY ==
--- NOTE | 2024-03-31 20:27 | HPE_ITS ---
Assessment and Plan Assessment and plan (1) Encounter for screening colonoscopy: Status: Acute Assessment and plan: Repeat colonoscopy today after extended prep History of Present Illness History of Present Illness Chief Complaint: screening colonoscopy Narrative: 69 y/o male with history of SHAWN, anxiety, HTN, HLD and sarcoidosis of the lung presents for colonoscopy screening pre-op. He describes that a number of years ago, he previously had a Colonoscopy, however he is unable to recall when, where or what the results were. He denies a family history of colon cancer. He denies any changes in bowel habits including bloody or black tarry stools, abdominal pain, diarrhea or constipation. He denies constitutional symptoms. He denies chest pain, palpitations, dyspnea or dyspnea with exertion. He denies prior history or family history of adverse reactions or complications with anesthesia. The patient denies any history of stroke, NV, seizures, bleeding or clotting disorders. He metal implanted in his jaw and bilateral hips. Attempted screening colonscoopy on 03/04 but incomplete because of inadequate p rep; since then, there have been no significant interval changes to the history or physical exam. [facility] All Active Problems Encounter for screening colonoscopy (Acute) Tinnitus, left (Acute) Obstructive sleep apnea (Chronic) Other specified disorders of external ear, unspecified ear (Acute) History of vitrectomy (Chronic) History of bilateral hip replacements (Acute 03/18/22) 03/18/22 Anterior Approach Asymmetrical sensorineural hearing loss (Acute) Exostosis of both external ear canals (Acute) Impacted cerumen, left ear (Acute) External nasal lesion (Acute) Primary localized osteoarthritis of right hip (Acute) s/p bilateral ALEISHA 03/18/22 Primary osteoarthritis of left hip (Acute) s/p bilateral ALEISHA 03/18/22 Lumbar spondylosis (Acute) Degenerative disc disease, lumbar (Acute) Medical History Nocturia Morbid obesity Lesion of ulnar nerve Hx of skin cancer, basal cell Arthritis of spine Arthritis, hip Diplopia Sarcoidosis of lung Ulnar neuropathy Right retinal detachment Hyperlipidemia Hypertension Anxiety Gout Erectile dysfunction Carpal tunnel syndrome Lumbar disc disease Tubular adenoma Bradycardia Basal cell carcinoma (BCC) Surgical History S/P transposition of nerve right ulnar nerve 07/07/2017 Hx of colonoscopy (~02/2024) Hx of detached retina repair 11/2020 History of back surgery Hx of discectomy 07/2002 History of mandibular surgery 2010 Hx of vasectomy Family History Mother , unknown age Cancer Social History Smoking/Tobacco Use Status: Never Smoking risk assessment performed?: Yes Alcohol Intake: current Alcohol Intake frequency: a few times a week Alcohol type: beer and wine Drug use: Never Substance use type: does not use Housing: house 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 Pets and animals: Yes Pets and animals: dog(s) Do you feel safe at home: Yes Do you feel safe in your relationship?: Yes Meds Allergies and Home Medications Allergies Allergy/AdvReac Type Severity Reaction Status Date / Time lactose AdvReac Stomach Verified 04/01/24 09:08 Upset Home Medications ?Medication ?Instructions ?Recorded ?Confirmed ?Type amlodipine 10 mg tablet 10 mg PO DAILY 05/24/21 04/01/24 History garlic 1,000 mg capsule 4,000 mg PO DAILY 05/24/21 03/31/24 History metoprolol tartrate 50 mg tablet 50 mg PO BID 05/24/21 04/01/24 History sildenafil 100 mg tablet (Viagra) 100 mg PO DAILY PRN 05/24/21 04/01/24 History multivitamin 1 tab PO DAILY 05/28/21 04/01/24 History furosemide 20 mg tablet 20 mg PO DAILY 12/24/23 04/01/24 History Exam Const General: cooperative, healthy appearing and not in acute distress Neck Neck: normal visual inspection, no lymphadenopathy and supple Resp Effort & Inspection: normal respiratory effort Auscultation: clear to auscultation bilaterally Cardio Jugular venous pressure: no JVD Rate: regular rate Rhythm: regular rhythm Heart Sounds: S1 normal and S2 normal GI Inspection: normal to inspection Palpation: soft, no guarding, no hernias and nontender Percussion: normal to percussion Auscultation: normal bowel sounds Neuro General: patient alert, patient awake and patient oriented x3 Psych Appearance: grossly normal
--- NOTE | 2024-03-31 20:29 | W.PM.DSUDISC ---
Date of service: 04/01/24 Discharge Plan Disposition Patient Disposition: Home Condition: Good Discharge Details Reason For Visit: screening colonoscopy Attending Provider: Stanley Garcia Primary Care Provider: Jackie Marin Home Meds and New Rx's Prescriptions: Continued garlic 1,000 mg capsule 4,000 mg PO DAILY sildenafil [Viagra] 100 mg tablet 100 mg PO DAILY PRN Rx Instructions: administer 30 minutes to 4 hours before activity amlodipine 10 mg tablet 10 mg PO DAILY metoprolol tartrate 50 mg tablet 50 mg PO BID multivitamin Tablet 1 tab PO DAILY furosemide 20 mg tablet 20 mg PO DAILY Discontinued bisacodyl 5 mg tablet,delayed release (DR/EC) 5 mg PO ONCE Qty: 8 0RF Rx Instructions: Per Colonoscopy bowel prep instructions polyethylene glycol 3350 17 gram/dose powder 238 g PO ONCE Qty: 238 0RF Rx Instructions: For Colonoscopy bowel prep, as directed by office Discharge Instructions Instructions: Colon polyps Additional Instructions: Kobe, it was great seeing you today. Your prep today was outstanding. And am glad you did it because we did find a polyp, which I removed today with no issues. It was quite small, and I certainly overlooked it before when the prep was not sufficient. I removed this polyp today, and I will send it off for testing. Polyps, different varieties, we use that information to guide the timing of your next colonoscopy. Hopefully make a quick recovery and have a great weekend. The results from the polyp report will take about a week or 2, but as you know, I will let you know as soon as I get that information. If you have any questions or need anything in the meantime, please do not hesitate to call. 1. If tolerated, consume a soft, low fiber diet for 1-2 days. [address] not drive, drink alcohol, operate machinery, make critical decisions, or do activities that require coordination or balance for 24 hours. 3. Because air was put into your colon during the procedure, expelling air from your rectum (passing gas or farting) is normal. 4. You may not have a bowel movement for 1-3 days because of the colonoscopy prep. This is normal. 5. Go directly to the emergency room if you notice any of the following: Develop chills (warm to touch), or if you have a thermometer and your temperature is above 101 Difficulty breathing or difficultly swallowing Persistent vomiting Severe abdominal pain, other than gas cramps Severe chest pain Black, tarry stools Any bleeding ? exceeding one tablespoon 6. Call your physician if the site where your intravenous was started becomes red, swollen, painful, and warm to touch. 7. Your physician has reviewed your pre-procedure medications. Please continue to take those medications as previously ordered. You will be given specific information/education regarding any changes to your medications before leaving. Activity:: Activity as Tolerated Diet:: As Tolerated Discharge Orders Discharge Orders: Discharge Order (Routine); Ordered 03/31/24 Ordered By: Stanley Garcia DS: Diagnosis Discharge Diagnosis (1) Encounter for screening colonoscopy: Status: Acute Asessment and Plan: Follow-up on polypectomy results
--- NOTE | 2024-03-31 20:30 | W.COLOREPORT ---
Date of service: 04/01/24 Time of Service: 11:10 Colonoscopy Report Date of procedure: 04/01/24 Pre-op diagnosis general: screening colonoscopy Post-op diagnosis procedure note: other (Colon polyp) Procedure: Colonoscopy with polypectomy Surgeon: Stanley Garcia Anesthesia Type: General:No Airway Estimated blood loss (mL): 5 Pathology: other (0.25 cm polyp at 65 cm) Complications: None Disposition: same day Indications: Kobe is a 69-year-old male who needs a screening colonoscopy. We attempted this about 2 weeks ago, but the prep was insufficient. He is back for repeat attempt Prep: Miralax/Dulcolax (Extended Dulcolax prep) Procedure Start Time: 10:44 Procedure End Time: 11:01 Retraction Time: 12 Findings: 0.25 cm slightly pedunculated polyp at 65 cm from the anus Procedure Description: After the induction of anesthesia, and with the patient in left lateral decubitus position, I began by performing an external anorectal exam.? Similar to the previous attempted colonoscopy, the external exam and digital rectal exam are all normal. Next, I advanced a colonoscope into the rectal vault.? I performed retroflexion.? This looked normal.? Using insufflation, I then advanced the colonoscope beyond the rectal folds and into the sigmoid colon before advancing towards the cecum.? The quality of the prep was outstanding.? The scope was noted to be in the cecum by identification of the ileocecal valve and appendiceal orifice.? I then began withdrawing the colonoscope using repeated irrigation as necessary for full evaluation of the colonic mucosa. Around 65 cm from the anal verge I identified a 0.25 cm polyp. ?It appeared slightly pedunculated in character. ?I was able to remove this with a cold forcep polypectomy. ?I examined the site, and there was minimal bleeding. ?Once this was completed, I continued to withdraw the scope and examine the remainder of the colonic mucosa.?Once the scope was withdrawn to the level of the rectum, great care was taken to examine portions of the rectal folds.? Finally, the scope was withdrawn and the patient was brought to the same-day surgery recovery unit as the anesthetic wore off. ?The findings and instructions were shared with the patient prior to discharge. [place] Bowel Prep [place] Bowel Prep Right Colon: 3 Left Colon: 3 Transverse Colon: 3 Total Score: 9
[2024-04-01 09:10] VITALS: BP 122/73; PULSE 54; RESP 20; TEMP 36.7; O2SAT 97
[2024-04-01] MEDS: Normal Saline Flush 10 ML SYR IV (09:32)
--- NOTE | 2024-04-01 10:04 | W.ANESPRE ---
General Info Date of Service Date Performed: 04/01/24 Height: 5 ft 6 in Weight: 97.1 kg Body Mass Index (BMI): 34.5 Surgical Procedure: Operation Date: 04/01/24 09:50 Proposed Procedure Side Surgeon p Colonoscopy Stanley Garcia MD Meds Allergies and Home Medications Allergies Allergy/AdvReac Type Severity Reaction Status Date / Time lactose AdvReac Stomach Verified 04/01/24 09:08 Upset Home Medication ?Medication ?Instructions ?Recorded amlodipine 10 mg tablet 10 mg PO DAILY 05/24/21 garlic 1,000 mg capsule 4,000 mg PO DAILY 05/24/21 metoprolol tartrate 50 mg tablet 50 mg PO BID 05/24/21 sildenafil 100 mg tablet (Viagra) 100 mg PO DAILY PRN 05/24/21 multivitamin 1 tab PO DAILY 05/28/21 furosemide 20 mg tablet 20 mg PO DAILY 12/24/23 Current Visit Medications: Current Medications Generic Name Dose Route Start Last Admin Trade Name Freq PRN Reason Stop Dose Admin Ringer's Solution 1,000 mls @ 80 mls/hr 04/01/24 06:00 IV 04/01/24 23:59 INFUSION [facility] IV Miscellaneous Supplies 1 each 04/01/24 06:00 Iv Access IV 04/01/24 23:59 DIRECTED ELIEZER Ondansetron HCl 4 mg 03/31/24 20:30 Ondansetron 4 Mg/2 Ml Vial IVP 04/30/24 20:29 Q4H PRN PRN Nausea / Vomiting Sodium Chloride 0 ml 04/01/24 06:00 04/01/24 09:32 Normal Saline Flush 10 Ml Syr IV 04/01/24 23:59 10 ml PRN PRN Administration Sodium Chloride 0 ml 04/01/24 06:00 Normal Saline 10 Ml Vial IJ 04/01/24 23:59 DIRECTED PRN Sterile Water 0 ml 04/01/24 06:00 Water,Injection,Sterile 10 Ml Vial IJ 04/01/24 23:59 DIRECTED PRN PFSH Active Problems Active Problems: Problem Status Onset Code Encounter for screening colonoscopy Acute Z12.11 Tinnitus, left Acute H93.12 Obstructive sleep apnea Chronic G47.33 Other specified disorders of external ear, unspecified ear Acute H61.899 Posterior subcapsular age-related cataract, right eye Resolved H25.041 Nuclear age-related cataract, right eye Resolved H25.11 History of vitrectomy Chronic Z98.890 History of bilateral hip replacements Acute 03/18/22 Z96.643 Asymmetrical sensorineural hearing loss Acute H90.5 Exostosis of both external ear canals Acute H61.813 Impacted cerumen, left ear Acute H61.22 External nasal lesion Acute L98.9 Primary localized osteoarthritis of right hip Acute M16.11 Primary osteoarthritis of left hip Acute M16.12 Lumbar spondylosis Acute M47.816 Degenerative disc disease, lumbar Acute M51.36 Medical History Medical History Nocturia Morbid obesity Lesion of ulnar nerve Hx of skin cancer, basal cell Arthritis of spine Arthritis, hip Diplopia Sarcoidosis of lung Ulnar neuropathy Right retinal detachment Hyperlipidemia Hypertension Anxiety Gout Erectile dysfunction Carpal tunnel syndrome Lumbar disc disease Tubular adenoma Bradycardia Basal cell carcinoma (BCC) Surgical History Surgical History S/P transposition of nerve right ulnar nerve 07/07/2017 Hx of colonoscopy (~02/2024) Hx of detached retina repair 11/2020 History of back surgery Hx of discectomy 07/2002 History of mandibular surgery 2010 Hx of vasectomy Tobacco Smoking/Tobacco Use Status: Never Alcohol Alcohol Intake: current Alcohol intake frequency: a few times a week Alcohol type: beer and wine Substance Use Substance use: Never Substance use type: does not use Vital Signs and Lab Results Vital Signs Most Recent Vital Signs in EMR: Most Recent Vital Signs Temp Pulse Resp BP Pulse Ox 36.7 C 54 L 20 122/73 97 04/01/24 09:10 04/01/24 09:10 04/01/24 09:10 04/01/24 09:10 04/01/24 09:10 Lab Results Blood Type / Crossmatch: No Data to Display Complete Blood Count: No Data to Display Complete Metabolic Panel: No Data to Display Liver Function Panel: No Data to Display Coagulation Panel: No Data to Display Cardiac Panel: No Data to Display Arterial Blood Gas: No Data to Display Venous Blood Gas: No Data to Display Pancreas Panel: No Data to Display Thyroid Panel: No Data to Display Infectious Disease: No Data to Display Blood Cultures: No Data to Display Toxicology Panel: No Data to Display Anesthesia Assessment and Plan Anesthesia History Personal History: No History of Anesthesia Complications Family History: No Family History of Anesthesia Complications Exercise Tolerance Exercise Tolerance: Metabolic Equivalents>4 Pertinent Negatives Pertinent Negatives: No Symptoms of GERD Cardiac & Pulmonary Exam Cardiac Exam: Normal S1/S2 Heart Sounds Pulmonary Exam: Clear Bilateral Breath Sounds Implantable Cardiac Device Does patient have a Pacemaker or an ICD?: No Airway Exam Known Difficult Airway: No Mallampati Class: 1 Mouth Opening: Normal (> 3cm) Thyromental Distance: Greater than 3 cm Neck Range of Motion: Full ROM Neck Circumference: Thick Teeth Condition: Normal Dentition ASA Classification ASA Score: ASA 2 Emergency Case?: No NPO Status NPO Status: NPO Clears >2 hours, Solids >8 hours Anesthesia Plan Resuscitation Status: Full Code Anesthesia Technique: General Anesthesia Airway Planned: Natural Airway Monitors Used: Standard Monitors
[2024-04-01 10:05] VITALS: BMI 34.5
--- NOTE | 2024-04-01 10:52 | BOWEL_PTH ---
PATIENT: Osmani Charles LOC: [facility] U#:[id number] AGE/SX: 69/M ROOM: RE04/01/[address]: Stanley Garcia MD : 1955 BED: DIS: 04/01/2024 SPEC #: [id number] RECD: 04/01/24 13:16 STATUS: GUILLERMO REQ #: [id number] ERWIN: 04/01/24 10:[address]: Stanley Garcia DEPT: Surgical Specimen RECD BY: Giuliana Kuo ENTERED: 04/01/24 13:17 SP TYPE: Bowel OTHR DR: Jackie Marin Tissues: 1 - BIOPSY BOWEL Procedures: GROSS AND MICRO LEVEL 4 Comments: [id number]
[2024-04-01 11:08] VITALS: BP 99/60; PULSE 52; RESP 18; TEMP 36.5; O2SAT 95
--- NOTE | 2024-04-01 11:32 | W.ANESPOSTOP ---
Postoperative Evaluation Date, Time and Location Date Performed: 04/01/24 Time Performed: 11:32 Patient Location: Day Surgery Unit Vital Signs Most Recent Imported Vital Signs: Most Recent Vital Signs Temp Pulse Resp BP Pulse Ox 36.5 C 52 L 18 99/60 L 95 04/01/24 11:08 04/01/24 11:08 04/01/24 11:08 04/01/24 11:08 04/01/24 11:08 Pain Score Most Recent Pain Score: Most Recent Pain Score Pain Level 0 04/01/24 11:08 Assessment Mental Status: Awake (Alert & Oriented to Patient Baseline) Airway and Respiratory Function: Patent airway with normal (patient baseline) respiratory exam Cardiovascular Function: Hemodynamically Stable Hydration Status: Adequately Hydrated Nausea & Vomiting: No Nausea or Vomiting Pain: Pt. Denies Any Pain Peripheral Nerve Block: Patient did not receive a nerve block
[2024-04-01 11:35] VITALS: BP 114/72; PULSE 82; RESP 16; TEMP 36.5; O2SAT 95
== END 2024-04-01 11:40 | disposition home or self-care (01) ==
LOC: SUR 08:58
PROVIDERS: PCP Nurse Practitioner Family; Visit Provider Surgery
PROC: 0DJD8ZZ Inspection of Lower Intestinal Tract, Via Natural or Artificial Opening Endoscopic (ICD-10-PCS; CPT 45378; principal; 2024-04-01 09:45)
DX: Z12.11 Encounter for screening for malignant neoplasm of colon (principal); D12.4 Benign neoplasm of descending colon
CPT/HCPCS: 45380; 88305; J2704

== ENCOUNTER 2024-10-07 06:51 | Day surgery (SDC) | payer OTHER, SELFPAY ==
--- NOTE | 2024-10-06 21:02 | W.PM.DSUDISC ---
Date of service: 10/07/24 Discharge Plan Disposition Patient Disposition: Home Condition: Good Discharge Details Reason For Visit: screening colonoscopy Attending Provider: Stanley Garcia Primary Care Provider: Jackie Marin Home Meds and New Rx's Prescriptions: Continued garlic 1,000 mg capsule 4,000 mg PO DAILY sildenafil [Viagra] 100 mg tablet 100 mg PO DAILY PRN Rx Instructions: administer 30 minutes to 4 hours before activity amlodipine 10 mg tablet 10 mg PO DAILY metoprolol tartrate 50 mg tablet 50 mg PO BID multivitamin Tablet 1 tab PO DAILY furosemide 20 mg tablet 20 mg PO DAILY Discontinued polyethylene glycol 3350 17 gram/dose powder 238 g PO ONCE Qty: 238 0RF Rx Instructions: take per colonoscopy instructions bisacodyl [Dulcolax (bisacodyl)] 5 mg tablet,delayed release (DR/EC) 5 mg PO ONCE Qty: 8 0RF Rx Instructions: take per colonoscopy instructions Discharge Instructions Additional Instructions: Kobe, was great seeing you today, and I enjoyed meeting your son as well. I hope you feel well this afternoon. Everything went very smoothly. Your prep was great and I could see everything very nicely. I do not see any signs of recurrence in the area where I took out that worrisome polyp last March. I went across the area multiple times, and everything looks quite normal. I did biopsy a tiny little bit of tissue that I suspect is the area that the polyp came out from, but overall, I would consider this very reassuring. I will let you know when the biopsy results are available, but right now I am very optimistic. If you have any questions, please do not hesitate to call. 1. If tolerated, consume a soft, low fiber diet for 1-2 days. 2[address] Do not drive, drink alcohol, operate machinery, make critical decisions, or do activities that require coordination or balance for 24 hours. 3. Because air was put into your colon during the procedure, expelling air from your rectum (passing gas or farting) is normal. 4. You may not have a bowel movement for 1-3 days because of the colonoscopy prep. This is normal. 5. Go directly to the emergency room if you notice any of the following: Develop chills (warm to touch), or if you have a thermometer and your temperature is above 101 Difficulty breathing or difficultly swallowing Persistent vomiting Severe abdominal pain, other than gas cramps Severe chest pain Black, tarry stools Any bleeding ? exceeding one tablespoon 6. Call your physician if the site where your intravenous was started becomes red, swollen, painful, and warm to touch. 7. Your physician has reviewed your pre-procedure medications. Please continue to take those medications as previously ordered. You will be given specific information/education regarding any changes to your medications before leaving. Stand Alone Forms: Anesthesia Discharge InstMona, Derrek Yost (DSU) Activity:: Activity as Tolerated Diet:: As Tolerated Discharge Orders Discharge Orders: Discharge Order (Routine); Ordered 10/06/24 Ordered By: Stanley Garcia DS: Diagnosis Discharge Diagnosis (1) Encounter for screening colonoscopy: Status: Acute Asessment and Plan: Follow-up on biopsy results
--- NOTE | 2024-10-06 21:04 | COLE_ITS ---
Date of service: 10/07/24 Time of Service: 08:38 Colonoscopy Report Date of procedure: 10/07/24 Pre-op diagnosis general: screening colonsocopy Post-op diagnosis procedure note: same Procedure: colonoscopy with biopsy Surgeon: Stanley Garcia Anesthesia Type: General:No Airway Estimated blood loss (mL): 5 Pathology: other (Colon polyp at 65 cm) Complications: None Disposition: same day Indications: Kobe is a 69 year old man with a history of tubular adenoma with high grade dysplasia. He needs a follow up screening colonoscopy Prep: Miralax/Dulcolax Procedure Start Time: 08:16 Procedure End Time: 08:32 Retraction Time: 12 Findings: Colon polyp at 65 cm Procedure Description: With Kobe in the left lateral decubitus position, I began by performing an external anorectal exam and digital rectal exam.? All of this was normal..? Using insufflation, I then advanced the colonoscope beyond the rectal folds and into the sigmoid colon before advancing towards the cecum.? The quality of the prep was excellent.? The scope was noted to be in the cecum by identification of the ileocecal valve and appendiceal orifice.? I then began withdrawing the colonoscope using repeated irrigation as necessary for full evaluation of the colonic mucosa. ?The previous polyp with high-grade dysplasia was measured around 65 cm from the anal verge. I took several passes across this area with the assistance of narrowband imaging. A small area of what appeared to be scar was identified. Small bit of tissue was biopsied from this area with cold forceps and labeled polyp at 65 cm. There were no particularly worrisome features here. I continued withdrawing the colonoscope again, pain careful attention to the entire circumference of the mucosal wall. Once the scope was withdrawn to the level of the rectum, great care was taken to examine portions of the rectal folds.? Finally, the scope was withdrawn and the patient was brought to the same-day surgery recovery unit as the anesthetic wore off. ?The findings and instructions were shared with the patient prior to discharge. [place] Bowel Prep [place] Bowel Prep Right Colon: 3 Left Colon: 3 Transverse Colon: 3 Total Score: 9
[2024-10-07 07:12] VITALS: BP 139/80; PULSE 63; RESP 16; TEMP 36.1; O2SAT 98
--- NOTE | 2024-10-07 07:45 | W.ANESPRE ---
General Info Date of Service Date Performed: 10/07/24 Height: 5 ft 6 in Weight: 97.4 kg Body Mass Index (BMI): 34.6 Surgical Procedure: Operation Date: 10/07/24 08:20 Proposed Procedure Side Surgeon yolanda Garcia MD Meds Allergies and Home Medications Allergies Allergy/AdvReac Type Severity Reaction Status Date / Time lactose AdvReac Stomach Verified 10/07/24 07:23 Upset Home Medication ?Medication ?Instructions ?Recorded amlodipine 10 mg tablet 10 mg PO DAILY 05/24/21 garlic 1,000 mg capsule 4,000 mg PO DAILY 05/24/21 metoprolol tartrate 50 mg tablet 50 mg PO BID 05/24/21 sildenafil 100 mg tablet (Viagra) 100 mg PO DAILY PRN 05/24/21 multivitamin 1 tab PO DAILY 05/28/21 furosemide 20 mg tablet 20 mg PO DAILY 12/24/23 Current Visit Medications: Current Medications Generic Name Dose Route Start Last Admin Trade Name Freq PRN Reason Stop Dose Admin Ringer's Solution 1,000 mls @ 80 mls/hr 10/07/24 06:00 IV 10/07/24 23:59 INFUSION [facility] IV Miscellaneous Supplies 1 each 10/07/24 06:00 Iv Access IV 10/07/24 23:59 DIRECTED ELEIZER Ondansetron HCl 4 mg 10/06/24 21:06 Ondansetron 4 Mg/2 Ml Vial IVP 11/05/24 21:05 Q4H PRN PRN Nausea / Vomiting Sodium Chloride 0 ml 10/07/24 06:00 Normal Saline Flush 10 Ml Syr IV 10/07/24 23:59 PRN PRN Sodium Chloride 0 ml 10/07/24 06:00 Normal Saline 10 Ml Vial IJ 10/07/24 23:59 DIRECTED PRN Sterile Water 0 ml 10/07/24 06:00 Water,Injection,Sterile 10 Ml Vial IJ 10/07/24 23:59 DIRECTED PRN PFSH Active Problems Active Problems: Problem Status Onset Code Encounter for screening colonoscopy Acute Z12.11 Tinnitus, left Acute H93.12 Obstructive sleep apnea Chronic G47.33 Other specified disorders of external ear, unspecified ear Acute H61.899 Posterior subcapsular age-related cataract, right eye Resolved H25.041 Nuclear age-related cataract, right eye Resolved H25.11 History of vitrectomy Chronic Z98.890 History of bilateral hip replacements Acute 03/18/22 Z96.643 Asymmetrical sensorineural hearing loss Acute H90.5 Exostosis of both external ear canals Acute H61.813 Impacted cerumen, left ear Acute H61.22 External nasal lesion Acute L98.9 Primary localized osteoarthritis of right hip Acute M16.11 Primary osteoarthritis of left hip Acute M16.12 Lumbar spondylosis Acute M47.816 Degenerative disc disease, lumbar Acute M51.36 Medical History Medical History Tubular adenoma of colon (~03/2024) high grade dysplasia Nocturia Morbid obesity Lesion of ulnar nerve Hx of skin cancer, basal cell Arthritis of spine Arthritis, hip Diplopia Sarcoidosis of lung Ulnar neuropathy Right retinal detachment Hyperlipidemia Hypertension Anxiety Gout Erectile dysfunction Carpal tunnel syndrome Lumbar disc disease Tubular adenoma Bradycardia Basal cell carcinoma (BCC) Surgical History Surgical History S/P transposition of nerve right ulnar nerve 07/07/2017 Hx of colonoscopy (~03/2024) Hx of detached retina repair 11/2020 History of back surgery Hx of discectomy 07/2002 History of mandibular surgery 2010 Hx of vasectomy Tobacco Smoking/Tobacco Use Status: Never Alcohol Alcohol Intake: current Alcohol intake frequency: a few times a week Alcohol type: beer and wine Substance Use Substance use: Never Substance use type: does not use Vital Signs and Lab Results Vital Signs Most Recent Vital Signs in EMR: Most Recent Vital Signs Temp Pulse Resp BP Pulse Ox 36.1 C L 63 16 139/80 98 10/07/24 07:12 10/07/24 07:12 10/07/24 07:12 10/07/24 07:12 10/07/24 07:12 Anesthesia Assessment and Plan Anesthesia History Personal History: No History of Anesthesia Complications Family History: No Family History of Anesthesia Complications Exercise Tolerance Exercise Tolerance: Metabolic Equivalents>4 Cardiac & Pulmonary Exam Cardiac Exam: Normal S1/S2 Heart Sounds Pulmonary Exam: Clear Bilateral Breath Sounds Implantable Cardiac Device Does patient have a Pacemaker or an ICD?: No Airway Exam Known Difficult Airway: No Mallampati Class: 1 Mouth Opening: Normal (> 3cm) Thyromental Distance: Greater than 3 cm Neck Range of Motion: Full ROM Neck Circumference: Thick Teeth Condition: Normal Dentition ASA Classification ASA Score: ASA 2 Emergency Case?: No NPO Status NPO Status: NPO Clears >2 hours, Solids >8 hours Anesthesia Plan Resuscitation Status: Full Code Anesthesia Technique: General Anesthesia Airway Planned: Natural Airway Monitors Used: Standard Monitors Preoperative Comments:: 69 yo male for colo. Just had a colo a few months ago. Has has no changes in his health history is still doing well functionally and denies GERD. sig PMHx: HTN, SHAWN, sarcoidosis, [place], LBP, anxiety Previous anes: - colo, prop, natural airway, no issues. - colo, prop, natural airway no issues. - ALEISHA, spinal, prop sedation, no issues.
[2024-10-07 07:48] VITALS: BMI 34.6
[2024-10-07] MEDS: Lactated Ringers 1,000 ML 80 ML IV (07:48)
--- NOTE | 2024-10-07 08:27 | BOWEL_PTH ---
PATIENT: Osmani Charles LOC: [facility] U#:[id number] AGE/SX: 69/M ROOM: RE10/07/[address]: Stanley Garcia MD : 1955 BED: DIS: 10/07/2024 SPEC #: [id number] RECD: 10/07/24 12:48 STATUS: GUILLERMO REQ #: [id number] ERWIN: 10/07/24 08:[address]: Stanley Garcia DEPT: Surgical Specimen RECD BY: Giuliana Kuo ENTERED: 10/07/24 12:49 SP TYPE: Bowel OTHR DR: Jackie Marin Tissues: 1 - BIOPSY BOWEL Procedures: GROSS AND MICRO LEVEL 4 Comments: [id number]
[2024-10-07 08:39] VITALS: BP 98/64; PULSE 59; RESP 16; TEMP 36.5; O2SAT 94
[2024-10-07 09:10] VITALS: BP 126/73; PULSE 53; RESP 16; TEMP 36.4; O2SAT 95
--- NOTE | 2024-10-07 09:34 | W.ANESPOSTOP ---
Postoperative Evaluation Date, Time and Location Date Performed: 10/07/24 Time Performed: 08:45 Patient Location: Day Surgery Unit Vital Signs Most Recent Imported Vital Signs: Most Recent Vital Signs Temp Pulse Resp BP Pulse Ox 36.4 C L 53 L 16 126/73 95 10/07/24 09:10 10/07/24 09:10 10/07/24 09:10 10/07/24 09:10 10/07/24 09:10 Pain Score Most Recent Pain Score: Most Recent Pain Score Pain Level 0 10/07/24 09:10 Assessment Mental Status: Awake (Alert & Oriented to Patient Baseline) Airway and Respiratory Function: Patent airway with normal (patient baseline) respiratory exam Cardiovascular Function: Hemodynamically Stable Hydration Status: Adequately Hydrated Nausea & Vomiting: No Nausea or Vomiting Pain: Pt. Denies Any Pain Peripheral Nerve Block: Patient did not receive a nerve block
== END 2024-10-07 09:13 | disposition home or self-care (01) ==
LOC: SUR 06:51
PROVIDERS: PCP Nurse Practitioner Family; Visit Provider Surgery
PROC: 0DJD8ZZ Inspection of Lower Intestinal Tract, Via Natural or Artificial Opening Endoscopic (ICD-10-PCS; CPT 45378; principal; 2024-10-07 08:15)
DX: Z12.11 Encounter for screening for malignant neoplasm of colon (principal); K63.5 Polyp of colon; K63.89 Other specified diseases of intestine
CPT/HCPCS: 45380; 88305; J2003; J2704